=== PATIENT | female | born 1940 | race Caucasian/White ===

== ENCOUNTER 2020-09-06 08:27 | Day surgery (SDC) | payer MEDICARE, OTHER ==
[~2020-09-06 08:27] MED LIST: Brimonidine 0.2% Ophth Soln 5 ML Bottle EYERT SCH; Cefuroxime 10 MG/ML SYRINGE EYERT SCH; Lidocaine 1% PF 2 ML SDV INJECT SCH; Ofloxacin 0.3% Ophth Soln 5 ML Bottle EYERT SCH; Phenylephrine 2.5% Ophth Soln 2 ML Bot EYERT SCH; Pilocarpine 4% Ophth Soln 15 ML Bot EYERT SCH; Polymyxin B/Trimethoprim 10 ML Bottle EYERT SCH; Tetracaine HCl/PF 0.5% 4 ML Bottle EYEBOTH SCH; Tobramycin 0.3% Ophth Drops 5 ML Bottle EYERT SCH; Tropicamide 1% Ophth Soln 15 ML Bottle EYERT SCH
[2020-09-06] MEDS: Tobramycin 0.3% Ophth Drops 5 ML Bottle EYERT SCH ×3 (09:09→10:38)
[2020-09-06] MEDS: Brimonidine 0.2% Ophth Soln 5 ML Bottle EYERT SCH ×3 (09:15→10:38)
--- NOTE | 2020-09-06 09:17 | PCM.PREANE ---
Preanesthetic Assessment - Procedure Proposed Procedure: Cataract Extraction Right Eye with IOL - Anesthesia/Transfusion/Family Hx Anesthesia History: Prior Anesthesia Without Reaction Family History of Anesthesia Reaction: No - Review of Systems General: No Symptoms Pulmonary: No Symptoms (Asthma, well controlled, triggered by grain dust. ) Cardiovascular: Other ([place] 2016, Stent placement x 2, follows with cardiology, no problems since then. ) Gastrointestinal: No Symptoms Neurological: No Symptoms Other: Reports: Depression - Physical Assessment NPO Status Date: 09/05/20 NPO Status Time: 19:30 Vital Signs: Last Vital Signs Temp 36.6 C 09/06/20 08:30 Pulse 59 L 09/06/20 08:30 Resp 16 09/06/20 08:30 BP 144/64 H 09/06/20 08:30 Pulse Ox 99 09/06/20 08:30 Height: 1.57 m Weight: 51.71 kg ASA Class: 3 Mental Status: Alert & Oriented x3 Airway Class: Mallampati = 1 Thyro-Mental Finger Breadths: 2 Mouth Opening Finger Breadths: 3 ROM/Head Extension: Full Lungs: Clear to Auscultation, Normal Respiratory Effort - Allergies Allergies/Adverse Reactions: Allergies Allergy/AdvReac Type Severity Reaction Status Date / Time irbesartan [From Avapro] Allergy Other Verified 09/05/20 16:15 levofloxacin Allergy Rash Verified 09/05/20 16:15 lisinopril Allergy Other Verified 09/05/20 16:15 Sulfa (Sulfonamide Allergy Hives Verified 09/05/20 16:15 Antibiotics) fosinopril sodium AdvReac Headache Verified 09/05/20 16:15 [From Monopril] - Anesthesia Plan Beta Cornelio: Metoprolol Med Last Dose Date: 09/06/20 Med Last Dose Time: 07:00 - Acknowledgements Anesthesia Type Planned: MAC Pt an Appropriate Candidate for the Planned Anesthesia: Yes Alternatives and Risks of Anesthesia Discussed w Pt/Guardian: Yes Pt/Guardian Understands and Agrees with Anesthesia Plan: Yes PreAnesthesia Questionnaire HEENT History: Reports: Impaired Vision Other HEENT History: wears glasses and contacts Cardiovascular History: Reports: Bypass, Hypertension Respiratory History: Reports: Asthma Genitourinary History: Reports: Other (See Below) Other Genitourinary History: "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." 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 OB/BYN History: Other Musculoskeletal History: wrist FX x2 Dermatologic History: Reports: Other (See Below) Other Dermatologic History: stasis papillomatosis - Infectious Disease History Infectious Disease History: Reports: Measles - Past Surgical History Cardiovascular Surgical History: Reports: Other (See Below) - HOME MEDS Home Medications: Home Meds Metoprolol Tartrate 50 mg PO BID 05/11/15 [History] amLODIPine [Norvasc] 5 mg PO BID 05/11/15 [History] hydrALAZINE [Apresoline] 10 mg PO BID 05/11/15 [History] Aspirin [Halfprin] 81 mg PO DAILY 04/02/16 [History] Clopidogrel [Plavix] 75 mg PO DAILY 04/02/16 [History] Furosemide [Lasix] 10 mg PO DAILY 04/02/16 [History] Isosorbide Dinitrate 10 mg PO DAILY 04/02/16 [History] Allopurinol [Zyloprim] 100 mg PO DAILY 08/08/20 [History] Clopidogrel Bisulfate [Plavix] 75 mg PO DAILY 08/08/20 [History] Ferrous Sulfate [Iron] 325 mg PO BID 08/08/20 [History] Rosuvastatin [Crestor] 10 mg PO DAILY 08/08/20 [History] Vit A/Vit C/Vit E/Zinc/Copper [Preservision Areds Softgel] 1 tab PO DAILY 08/08/20 [History] calcitrioL [Rocaltrol] 0.25 mcg PO DAILY 08/08/20 [History] - CURRENT (IN HOUSE) MEDS Current Meds: Current Medications Brimonidine Tartrate (Alphagan 0.2% Ophth Soln) 0 ml EYERT ASDIRECTED DANTE Stop: 09/06/20 18:00 Cefuroxime Sodium (Zinacef) 0 mg EYERT ASDIRECTED DANTE Stop: 09/06/20 18:00 Lidocaine HCl (Xylocaine-Mpf 1%) 0 ml INJECT ASDIRECTED DANTE Stop: 09/06/20 18:00 Phenylephrine HCl (Duarte-Synephrine 2.5% Ophth Soln) 0 ml EYERT ASDIRECTED DANTE Stop: 09/06/20 18:00 Pilocarpine HCl (Pilocar 4% Ophth Soln) 0 ml EYERT ASDIRECTED DANTE Stop: 09/06/20 18:00 Tetracaine HCl (Tetracaine 0.5% Steri-Unit Belle) 0 ml EYEBOTH ASDIRECTED DANTE Stop: 09/06/20 18:00 Tobramycin (Tobramycin 0.3% Ophth Soln) 0 ml EYERT ASDIRECTED DANTE Stop: 09/06/20 18:00 Last Admin: 09/06/20 09:09 Dose: 1 drop Documented by: Tropicamide (Mydriacyl 1% Ophth Soln) 0 ml EYERT ASDIRECTED DANTE Stop: 09/06/20 18:00 Discontinued Medications Brimonidine Tartrate (Alphagan 0.2% Ophth Soln) 0 ml EYERT ASDIRECTED DANTE Stop: 08/09/20 18:00 Lidocaine HCl (Xylocaine-Mpf 1%) 0 ml INJECT ASDIRECTED DANTE Stop: 08/09/20 18:00 Ofloxacin (Ocuflox 0.3% Oph Soln) 1 ml EYERT ASDIRECTED DANTE Phenylephrine HCl (Duarte-Synephrine 2.5% Oph Soln) 0 ml EYERT ASDIRECTED DANTE Stop: 08/09/20 18:00 Pilocarpine HCl (Pilocar 4% Ophth Soln) 0 ml EYERT ASDIRECTED DANTE Stop: 08/09/20 18:00 Polymyxin/Trimethoprim Sulfate (Polytrim Ophth Soln) 0 ml EYERT ASDIRECTED DANTE Stop: 08/09/20 18:00 Tetracaine HCl (Tetracaine 0.5% Steri-Unit Belle) 0 ml EYEBOTH ASDIRECTED DANTE Stop: 08/09/20 18:00 Tobramycin (Tobramycin 0.3% Ophth Soln) 0 ml EYERT ASDIRECTED DANTE Stop: 08/09/20 18:00 Tropicamide (Mydriacyl 1% Oph Soln) 0 ml EYERT ASDIRECTED DANTE Stop: 08/09/20 18:00
[2020-09-06] MEDS: Phenylephrine 2.5% Ophth Soln 2 ML Bot EYERT SCH ×5 (09:20→10:15)
[2020-09-06] MEDS: Tropicamide 1% Ophth Soln 15 ML Bottle EYERT SCH ×5 (09:25→10:09)
[2020-09-06] MEDS: Tetracaine HCl/PF 0.5% 4 ML Bottle EYEBOTH SCH ×4 (09:52→10:24)
--- NOTE | 2020-09-06 10:38 | PCM48HPAN ---
Post Anesthesia Note - EVALUATION WITHIN 48HRS OF ANESTHETIC Vital Signs in Normal Range: Yes Patient Participated in Evaluation: Yes Respiratory Function Stable: Yes Airway Patent: Yes Cardiovascular Function Stable: Yes Hydration Status Stable: Yes Pain Control Satisfactory: Yes Nausea and Vomiting Control Satisfactory: Yes Mental Status Recovered: Yes Vital Signs: Last Vital Signs Temp 36.6 C 09/06/20 08:30 Pulse 59 L 09/06/20 08:30 Resp 16 09/06/20 08:30 BP 144/64 H 09/06/20 08:30 Pulse Ox 99 09/06/20 08:30
[2020-09-06 10:53] VITALS: BP 149/58; PULSE 58
== END 2020-09-06 10:48 | disposition home or self-care (01) ==
LOC: JD.SDS 08:27
PROVIDERS: ATTEND Ophthalmology
DX: H25.813 Combined forms of age-related cataract, bilateral (principal); H35.3131 Nonexudative age-related macular degeneration, bilateral, early dry stage; H35.363 Drusen (degenerative) of macula, bilateral; H53.032 Strabismic amblyopia, left eye; H43.22 Crystalline deposits in vitreous body, left eye; J45.909 Unspecified asthma, uncomplicated; E78.00 Pure hypercholesterolemia, unspecified; I10 Essential (primary) hypertension; Z87.891 Personal history of nicotine dependence; Z88.8 Allergy status to other drugs, medicaments and biological substances; Z88.2 Allergy status to sulfonamides
CPT/HCPCS: 66984; A9270; C1780; J0697; J2001

== ENCOUNTER 2020-09-27 07:16 | Day surgery (SDC) | payer MEDICARE, OTHER ==
[~2020-09-27 07:16] MED LIST changes: -Brimonidine 0.2% Ophth Soln 5 ML Bottle EYERT SCH; +Cefuroxime 10 MG/ML SYRINGE EYELF SCH; -Cefuroxime 10 MG/ML SYRINGE EYERT SCH; -Ofloxacin 0.3% Ophth Soln 5 ML Bottle EYERT SCH; -Phenylephrine 2.5% Ophth Soln 2 ML Bot EYERT SCH; +Pilocarpine 4% Ophth Soln 15 ML Bot EYELF SCH; -Pilocarpine 4% Ophth Soln 15 ML Bot EYERT SCH; -Polymyxin B/Trimethoprim 10 ML Bottle EYERT SCH; -Tetracaine HCl/PF 0.5% 4 ML Bottle EYEBOTH SCH; -Tobramycin 0.3% Ophth Drops 5 ML Bottle EYERT SCH; -Tropicamide 1% Ophth Soln 15 ML Bottle EYERT SCH
[2020-09-27] MEDS: Tobramycin 0.3% Ophth Drops 5 ML Bottle EYELF SCH ×3 (07:28→09:01)
--- NOTE | 2020-09-27 07:32 | PCM.PREANE ---
Preanesthetic Assessment - Anesthesia/Transfusion/Family Hx Anesthesia History: Prior Anesthesia Without Reaction Family History of Anesthesia Reaction: No Transfusion History: No Prior Transfusion(s) - Review of Systems General: No Symptoms Pulmonary: No Symptoms Gastrointestinal: No Symptoms Neurological: No Symptoms Other: Reports: None - Physical Assessment NPO Status Date: 09/26/20 NPO Status Time: 20:00 ASA Class: 2 Mental Status: Alert & Oriented x3 Airway Class: Mallampati = 2 Dentition: Reports: Normal Dentition Thyro-Mental Finger Breadths: 3 Mouth Opening Finger Breadths: 3 ROM/Head Extension: Full Lungs: Clear to Auscultation, Normal Respiratory Effort Cardiovascular: Regular Rate, Regular Rhythm - Allergies Allergies/Adverse Reactions: Allergies Allergy/AdvReac Type Severity Reaction Status Date / Time irbesartan [From Avapro] Allergy Other Verified 09/26/20 13:45 levofloxacin Allergy Rash Verified 09/26/20 13:45 lisinopril Allergy Other Verified 09/26/20 13:45 Sulfa (Sulfonamide Allergy Hives Verified 09/26/20 13:45 Antibiotics) fosinopril sodium AdvReac Headache Verified 09/26/20 13:45 [From Monopril] - Acknowledgements Anesthesia Type Planned: MAC Pt an Appropriate Candidate for the Planned Anesthesia: Yes Alternatives and Risks of Anesthesia Discussed w Pt/Guardian: Yes Pt/Guardian Understands and Agrees with Anesthesia Plan: Yes PreAnesthesia Questionnaire HEENT History: Reports: Impaired Vision Other HEENT History: wears glasses and contacts Cardiovascular History: Reports: CAD, Hypertension, [place], SOB on Exertion, Other ( See Below) ([place] December 2015 stents x2) Respiratory History: Reports: Asthma Genitourinary History: Reports: Other (See Below) Other Genitourinary History: "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." 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 OB/BYN History: Other Musculoskeletal History: wrist FX x2 Dermatologic History: Reports: Other (See Below) Other Dermatologic History: stasis papillomatosis - Infectious Disease History Infectious Disease History: Reports: Measles - Past Surgical History HEENT Surgical History: Reports: Cataract Surgery Cardiovascular Surgical History: Reports: Carotid Endarterectomy, Coronary Artery Stent, Vascular Surgery, Other (See Below) Musculoskeletal Surgical History: Reports: Other (See Below) ((L) wrist) - SUBSTANCE USE Tobacco Use Status *Q: Former Tobacco User - HOME MEDS Home Medications: Home Meds Metoprolol Tartrate 50 mg PO BID 05/11/15 [History] amLODIPine [Norvasc] 5 mg PO BID 05/11/15 [History] hydrALAZINE [Apresoline] 10 mg PO BID 05/11/15 [History] Aspirin [Halfprin] 81 mg PO DAILY 04/02/16 [History] Clopidogrel [Plavix] 75 mg PO DAILY 04/02/16 [History] Furosemide [Lasix] 10 mg PO DAILY 04/02/16 [History] Isosorbide Dinitrate 10 mg PO DAILY 04/02/16 [History] Allopurinol [Zyloprim] 100 mg PO DAILY 08/08/20 [History] Clopidogrel Bisulfate [Plavix] 75 mg PO DAILY 08/08/20 [History] Ferrous Sulfate [Iron] 325 mg PO BID 08/08/20 [History] Rosuvastatin [Crestor] 10 mg PO DAILY 08/08/20 [History] Vit A/Vit C/Vit E/Zinc/Copper [Preservision Areds Softgel] 1 tab PO DAILY 08/08/20 [History] calcitrioL [Rocaltrol] 0.25 mcg PO DAILY 08/08/20 [History] - CURRENT (IN HOUSE) MEDS Current Meds: Current Medications Brimonidine Tartrate (Alphagan 0.2% Ophth Soln) 0 ml EYELF ASDIRECTED DANTE Stop: 09/27/20 18:00 Cefuroxime Sodium (Zinacef) 0 mg EYELF ASDIRECTED DANTE Stop: 09/27/20 18:00 Lidocaine HCl (Xylocaine-Mpf 1%) 0 ml INJECT ASDIRECTED DANTE Stop: 09/27/20 18:00 Phenylephrine HCl (Duarte-Synephrine 2.5% Ophth Soln) 0 ml EYELF ASDIRECTED DANTE Stop: 09/27/20 18:00 Pilocarpine HCl (Pilocar 4% Ophth Soln) 0 ml EYELF ASDIRECTED DANTE Stop: 09/27/20 18:00 Tetracaine HCl (Tetracaine 0.5% Steri-Unit Belle) 0 ml EYEBOTH ASDIRECTED DANTE Stop: 09/27/20 18:00 Tobramycin (Tobramycin 0.3% Ophth Soln) 0 ml EYELF ASDIRECTED DANTE Stop: 09/27/20 18:00 Tropicamide (Mydriacyl 1% Ophth Soln) 0 ml EYELF ASDIRECTED DANTE Stop: 09/27/20 18:00
[2020-09-27] MEDS: Brimonidine 0.2% Ophth Soln 5 ML Bottle EYELF SCH ×3 (07:33→09:01)
[2020-09-27] MEDS: Phenylephrine 2.5% Ophth Soln 2 ML Bot EYELF SCH ×5 (07:38→08:44)
[2020-09-27] MEDS: Tropicamide 1% Ophth Soln 15 ML Bottle EYELF SCH ×4 (07:42→08:15)
[2020-09-27] MEDS: Tetracaine HCl/PF 0.5% 4 ML Bottle EYEBOTH SCH ×4 (08:22→08:53)
--- NOTE | 2020-09-27 09:03 | PCM48HPAN ---
Post Anesthesia Note - EVALUATION WITHIN 48HRS OF ANESTHETIC Vital Signs in Normal Range: Yes Patient Participated in Evaluation: Yes Respiratory Function Stable: Yes Airway Patent: Yes Cardiovascular Function Stable: Yes Hydration Status Stable: Yes Pain Control Satisfactory: Yes Nausea and Vomiting Control Satisfactory: Yes Mental Status Recovered: Yes Vital Signs: Last Vital Signs Temp 36.8 C 09/27/20 07:36 Pulse 56 L 09/27/20 07:36 Resp 16 09/27/20 07:36 BP 138/56 L 09/27/20 07:36 Pulse Ox 97 09/27/20 07:36
[2020-09-27 09:15] VITALS: BP 143/71; PULSE 58
== END 2020-09-27 09:11 | disposition home or self-care (01) ==
LOC: JD.SDS 07:16
PROVIDERS: ATTEND Ophthalmology
DX: H25.812 Combined forms of age-related cataract, left eye (principal); H52.31 Anisometropia; H35.3131 Nonexudative age-related macular degeneration, bilateral, early dry stage; H53.032 Strabismic amblyopia, left eye; H43.22 Crystalline deposits in vitreous body, left eye; M05.89 Other rheumatoid arthritis with rheumatoid factor of multiple sites; E78.00 Pure hypercholesterolemia, unspecified; I10 Essential (primary) hypertension; Z98.890 Other specified postprocedural states; Z87.891 Personal history of nicotine dependence; Z79.899 Other long term (current) drug therapy; Z79.82 Long term (current) use of aspirin; Z88.8 Allergy status to other drugs, medicaments and biological substances; Z96.1 Presence of intraocular lens; J45.909 Unspecified asthma, uncomplicated
CPT/HCPCS: 66984; A9270; J0697; J2001; V2632

== ENCOUNTER 2021-02-25 07:35 | Emergency (ER) | payer MEDICARE, OTHER ==
[2021-02-25 07:50] VITALS: BP 155/63; PULSE 90
--- NOTE | 2021-02-25 08:05 | EDM.PDOC ---
ED HPI GENERAL MEDICAL PROBLEM - General Chief Complaint: Skin Complaint Stated Complaint: FACIAL SWELLING/DENTAL OR SINUS COMPLAINT Time Seen by Provider: 02/25/21 07:53 Source of Information: Reports: Patient, RN Notes Reviewed - History of Present Illness INITIAL COMMENTS - FREE TEXT/NARRATIVE: 80 yr old female with selling discomfort L upper mouth. She only has 1 remaining upper incissor. That has become pressure sensitive over the last 2 days. There is swelling and achiness base of tooth worse today. No fever or chills. Upper Lip Pain Score (Numeric/FACES): 3 - Related Data Allergies Allergy/AdvReac Type Severity Reaction Status Date / Time irbesartan [From Avapro] Allergy Other Verified 02/25/21 07:50 levofloxacin Allergy Rash Verified 02/25/21 07:50 lisinopril Allergy Other Verified 02/25/21 07:50 Sulfa (Sulfonamide Allergy Hives Verified 02/25/21 07:50 Antibiotics) fosinopril sodium AdvReac Headache Verified 02/25/21 07:50 [From Monopril] Home Meds: Home Meds Metoprolol Tartrate 50 mg PO BID 05/11/15 [History] amLODIPine [Norvasc] 5 mg PO BID 05/11/15 [History] hydrALAZINE [Apresoline] 10 mg PO BID 05/11/15 [History] Aspirin [Halfprin] 81 mg PO DAILY 04/02/16 [History] Clopidogrel [Plavix] 75 mg PO DAILY 04/02/16 [History] Furosemide [Lasix] 10 mg PO DAILY 04/02/16 [History] Isosorbide Dinitrate 10 mg PO DAILY 04/02/16 [History] Ferrous Sulfate [Iron] 325 mg PO BID 08/08/20 [History] Rosuvastatin [Crestor] 10 mg PO DAILY 08/08/20 [History] Vit A/Vit C/Vit E/Zinc/Copper [Preservision Areds Softgel] 1 tab PO DAILY 08/08/20 [History] allopurinoL [Zyloprim] 100 mg PO DAILY 08/08/20 [History] calcitrioL [Rocaltrol] 0.25 mcg PO DAILY 08/08/20 [History] Amoxicillin 500 mg PO Q8HR #20 capsule 02/25/21 [Rx] Past Medical History HEENT History: Reports: Impaired Vision Other HEENT History: wears glasses and contacts Cardiovascular History: Reports: CAD, Hypertension, [place], SOB on Exertion, Other (See Below) Respiratory History: Reports: Asthma Genitourinary History: Reports: Other (See Below) Other Genitourinary History: "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." - unsure if one it working or not 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 OF 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: 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 Musculoskeletal History: wrist FX x2 Dermatologic History: Reports: Other (See Below) Other Dermatologic History: stasis papillomatosis - Infectious Disease History Infectious Disease History: Reports: Measles - Past Surgical History HEENT Surgical History: Reports: Cataract Surgery Cardiovascular Surgical History: Reports: Carotid Endarterectomy, Coronary Artery Stent, Vascular Surgery, Other (See Below) Other Cardiovascular Surgeries/Procedures: Carotid artery surgery Musculoskeletal Surgical History: Reports: Other (See Below) Other Musculoskeletal Surgeries/Procedures:: left wrist surgery with repair Social & Family History - Tobacco Use Tobacco Use Status *Q: Never Tobacco User - Caffeine Use Caffeine Use: Reports: Coffee - Recreational Drug Use Recreational Drug Use: No ED ROS GENERAL - Review of Systems Review Of Systems: See Below Constitutional: Denies: Fever, Chills HEENT: Reports: Dental Pain Respiratory: Reports: No Symptoms Cardiovascular: Reports: No Symptoms GI/Abdominal: Reports: No Symptoms Musculoskeletal: Reports: No Symptoms Skin: Denies: Rash, Erythema Neurological: Reports: No Symptoms ED EXAM, SKIN/RASH Exam: See Below General Appearance: Alert, No Apparent Distress Ears: Normal External Exam Nose: Normal Inspection Throat/Mouth: Normal Oropharynx, Other (mild swelling L upper gum base of L incissor, no active drainage) Head: Facial Swelling (no visible facial swelling) Respiratory/Chest: No Respiratory Distress Extremities: Normal Inspection Neurological: Alert, Oriented, No Motor/Sensory Deficits Skin: Warm, Dry, Normal Color Course - Vital Signs Last Recorded V/S: Last Vital Signs Temp 96.9 F 02/25/21 07:44 Pulse 90 02/25/21 07:44 Resp 18 02/25/21 07:44 BP 155/63 H 02/25/21 07:44 Pulse Ox 100 02/25/21 07:44 Departure - Departure Time of Disposition: 08:02 Disposition: Home, Self-Care 01 Condition: Fair Clinical Impression: Pain, dental - Discharge Information Prescriptions: Amoxicillin 500 mg PO Q8HR #20 capsule Referrals: PCP,None [Primary Care Provider] - Forms: ED Department Discharge Additional Instructions: Amoxicillin 500 mg 3 times daily for 1 week or until gone. Prescription has been sent to [facility] the [facility]. See your dentist in the next week or so for further eval and treatment as needed. Sepsis Event Note (ED) - Evaluation Sepsis Screening Result: No Definite Risk - Focused Exam Vital Signs: Vital Signs Temp Pulse Resp BP Pulse Ox 02/25/21 07:44 96.9 F 90 18 155/63 H 100
== END 2021-02-25 08:12 | disposition home or self-care (01) ==
LOC: JD.ED 07:35
DX: K08.89 Other specified disorders of teeth and supporting structures (principal); I25.10 Atherosclerotic heart disease of native coronary artery without angina pectoris; I10 Essential (primary) hypertension; I25.2 Old myocardial infarction; J45.909 Unspecified asthma, uncomplicated; Z79.82 Long term (current) use of aspirin; Z79.02 Long term (current) use of antithrombotics/antiplatelets; Z79.899 Other long term (current) drug therapy; Z88.8 Allergy status to other drugs, medicaments and biological substances; Z88.1 Allergy status to other antibiotic agents; Z88.2 Allergy status to sulfonamides
CPT/HCPCS: 99282; 99283

== ENCOUNTER 2021-06-04 14:40 | Inpatient (IN) | payer MEDICARE, OTHER ==
[2021-06-04] MEDS ORDERED: Sodium Chloride 0.9% 10 ML Syringe FLUSH PRN (14:48)
[2021-06-04] MEDS ORDERED: Sodium Chloride 0.9% 1,000 ML IV STA ×2 (15:03→17:53)
[2021-06-04] MEDS ORDERED: Acetaminophen 325 MG Tab PO ONE (15:04)
--- NOTE | 2021-06-04 16:53 | EDM.PDOC ---
ED HPI GENERAL MEDICAL PROBLEM - General Chief Complaint: Syncope Stated Complaint: KAMILLA AMB Time Seen by Provider: 06/04/21 14:43 Source of Information: Reports: Patient, RN Notes Reviewed History Limitations: Reports: No Limitations - History of Present Illness INITIAL COMMENTS - FREE TEXT/NARRATIVE: Patient is a 81-year-old female presenting to the emergency department for evaluation after experiencing syncopal episode. Patient reports that she was working outside for most of the morning. Of note, ambient temperature today is 100 degrees. She went inside and was moving a headboard by herself and experience syncope. This was not witnessed. Her neighbor came to check on her and found her. Reports that she has not eaten or drink anything today. She is complaining of pain to her left shoulder and left ribs. Denies any headache or vision changes. She has had no chest pain or shortness of breath. She denies any history of previous syncopal episodes. Denies any history of cardiac arrhythmias. Left Clavicle Pain Score (Numeric/FACES): 7 - Related Data Allergies Allergy/AdvReac Type Severity Reaction Status Date / Time irbesartan [From Avapro] Allergy Other Verified 06/04/21 14:50 levofloxacin Allergy Rash Verified 06/04/21 14:50 lisinopril Allergy Other Verified 06/04/21 14:50 Sulfa (Sulfonamide Allergy Hives Verified 06/04/21 14:50 Antibiotics) fosinopril sodium AdvReac Headache Verified 06/04/21 14:50 [From Monopril] Home Meds: Home Meds Aspirin [Halfprin] 81 mg PO DAILY 04/02/16 [History] Furosemide [Lasix] 20 mg PO ASDIRECTED 04/02/16 [History] Isosorbide Dinitrate 10 mg PO BID 04/02/16 [History] Ferrous Sulfate [Iron] 65 mg PO BID 08/08/20 [History] Rosuvastatin [Crestor] 10 mg PO DAILY 08/08/20 [History] allopurinoL [Zyloprim] 100 mg PO DAILY 08/08/20 [History] calcitrioL [Rocaltrol] 0.25 mcg PO ASDIRECTED 08/08/20 [History] carvediloL [Carvedilol] 3.125 mg PO BID 02/25/21 [History] Entresto 1 tab PO BID 06/04/21 [History] Cholecalciferol (Vitamin D3) [Vitamin D3] 1,000 unit PO BID 06/04/21 [History] Ubidecarenone [Co Q-10] 10 mg PO DAILY 06/04/21 [History] Past Medical History HEENT History: Reports: Impaired Vision Other HEENT History: wears glasses and contacts Cardiovascular History: Reports: CAD, Hypertension, MA, SOB on Exertion, Other (See Below) Respiratory History: Reports: Asthma Genitourinary History: Reports: Other (See Below) Other Genitourinary History: "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." - unsure if one it working or not [employer]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 Musculoskeletal History: wrist FX x2 Dermatologic History: Reports: Other (See Below) Other Dermatologic History: stasis papillomatosis - Infectious Disease History Infectious Disease History: Reports: Measles - Past Surgical History HEENT Surgical History: Reports: Cataract Surgery Cardiovascular Surgical History: Reports: Carotid Endarterectomy, Coronary Artery Stent, Vascular Surgery, Other (See Below) Other Cardiovascular Surgeries/Procedures: Carotid artery surgery Musculoskeletal Surgical History: Reports: Other (See Below) Other Musculoskeletal Surgeries/Procedures:: left wrist surgery with repair Social & Family History - Tobacco Use Tobacco Use Status *Q: Never Tobacco User Second Hand Smoke Exposure: No - Caffeine Use Caffeine Use: Reports: Coffee - Recreational Drug Use Recreational Drug Use: No ED ROS GENERAL - Review of Systems Review Of Systems: See Below Constitutional: Reports: No Symptoms. Denies: Fever, Chills, Weakness HEENT: Reports: No Symptoms Respiratory: Reports: No Symptoms. Denies: Shortness of Breath, Cough Cardiovascular: Reports: Syncope. Denies: Chest Pain, Dyspnea on Exertion, Lightheadedness, Palpitations Endocrine: Reports: No Symptoms GI/Abdominal: Reports: No Symptoms : Reports: No Symptoms Musculoskeletal: Reports: Other (Left shoulder, chest wall, and fourth finger pain) Skin: Reports: No Symptoms Neurological: Reports: No Symptoms Psychiatric: Reports: No Symptoms Hematologic/Lymphatic: Reports: No Symptoms Immunologic: Reports: No Symptoms - Physical Exam Exam: See Below Exam Limited By: No Limitations General Appearance: Alert, WD/WN, No Apparent Distress Eye Exam: Bilateral Eye: PERRL Ears: Normal External Exam, Normal Canal, Hearing Grossly Normal, Normal TMs Head Exam: Normocephalic, Scalp Abrasions (0.25 cm superficial left frontal scalp). No: Scalp Lacerations, Scalp Swelling Neck: Normal Inspection, Supple, Non-Tender, Full Range of Motion Respiratory/Chest: No Respiratory Distress, Lungs Clear, Normal Breath Sounds, No Accessory Muscle Use, Other (left chest wall tenderness) Cardiovascular: Normal Peripheral Pulses, Regular Rate, Rhythm, No Edema, No Gallop, No JVD, No Murmur, No Rub GI/Abdominal: Normal Bowel Sounds, Soft, Non-Tender, No Organomegaly, No Distention, No Abnormal Bruit, No Mass Neuro Exam (Abbreviated): Alert, Oriented, CN II-XII Intact, Normal Cognition, Normal Gait, Normal Reflexes, No Motor/Sensory Deficits Back Exam: Normal Inspection, Full Range of Motion. No: Vertebral Tenderness Extremities: Other (tenderness to palpation and obvious deformity to left clavicle midshaft. superficial skin tear to left lateral elbow. pain and mild swelling to left 4th finger with chronic deformity d/t arthritis.) Psychiatric: Normal Affect #1 Interpretation EKG Date: 06/04/21 Time: 15:23 Rhythm: NSR Rate (Beats/Min): 68 [place]: Normal P-Wave: Present QRS: Normal ST-T: Normal QT: Normal Course - Vital Signs Last Recorded V/S: Last Vital Signs Temp 98.1 F 06/04/21 20:49 Pulse 67 06/04/21 20:49 Resp 16 06/04/21 20:49 BP 96/41 L 06/04/21 20:49 Pulse Ox 92 L 06/04/21 20:49 - Orders/Labs/Meds Orders: Active Orders 24 hr Category Date Time Status EKG Documentation Completion [RC] STAT Care 06/04/21 14:49 Active RT Aerosol Therapy [RC] ASDIRECTED Care 06/04/21 17:07 Active BLOOD CULTURE [MREF] Stat Lab 06/04/21 18:35 Received BLOOD CULTURE [MREF] Stat Lab 06/04/21 18:35 Received Sodium Chloride 0.9% [Normal Saline] 1,000 ml Med 06/04/21 17:53 Active IV NOW Sodium Chloride 0.9% [Saline Flush] Med 06/04/21 14:48 Active 10 ml FLUSH ASDIRECTED PRN Blood Culture x2 Reflex Set [OM.PC] Stat Oth 06/04/21 17:57 Ordered DME for Discharge [COMM] Routine Oth 06/04/21 17:18 Ordered Peripheral IV Insertion Adult [OM.PC] Stat Oth 06/04/21 14:48 Ordered Medication Orders Heparin Sodium (Porcine) (Heparin Sodium 5,000 Units/Ml Vial) 5,000 units SUBCUT Q8H DANTE Sodium Chloride (Normal Saline) 1,000 mls @ 150 mls/hr IV NOW STA Stop: 06/05/21 00:32 Sodium Chloride (Normal Saline) 1,000 mls @ 100 mls/hr IV ASDIRECTED DANTE Last Admin: 06/04/21 19:07 Dose: 100 mls/hr Documented by: PAZ Ondansetron HCl (Ondansetron 4 Mg/2 Ml Sdv) 4 mg IV Q4H PRN PRN Reason: Nausea/Vomiting Sodium Chloride (Sodium Chloride 0.9% 10 Ml Syringe) 10 ml FLUSH ASDIRECTED PRN PRN Reason: Keep Vein Open Last Admin: 06/04/21 16:36 Dose: 10 ml Documented by: PAZ Labs: Laboratory Tests 06/04/21 06/04/21 06/04/21 Range/Units 16:22 16:22 16:22 WBC 16.96 H (3.98-10.04) K/mm3 RBC 2.67 L (3.98-5.22) M/mm3 Hgb 9.0 L D (11.2-15.7) gm/dl Hct 26.8 L (34.1-44.9) % MCV 100.4 H D (79.4-94.8) fl MCH 33.7 H (25.6-32.2) pg MCHC 33.6 (32.2-35.5) g/dl RDW Std Deviation 45.9 (36.4-46.3) fL Plt Count 265 (182-369) K/mm3 MPV 10.4 (9.4-12.3) fl Neut % (Auto) 90.2 H (34.0-71.1) % Lymph % (Auto) 4.7 L (19.3-51.7) % [place] % (Auto) 4.7 (4.7-12.5) % Eos % (Auto) 0.1 L (0.7-5.8) Baso % (Auto) 0.1 (0.1-1.2) % Neut # (Auto) 15.31 H (1.56-6.13) K/mm3 Lymph # (Auto) 0.79 L (1.18-3.74) K/mm3 [place] # (Auto) 0.79 H (0.24-0.36) K/mm3 Eos # (Auto) 0.01 L (0.04-0.36) K/mm3 Baso # (Auto) 0.02 (0.01-0.08) K/mm3 Manual Slide Review Abnormal smear Sodium 135 L (136-145) mEq/L Potassium 6.3 H* (3.5-5.1) mEq/L Chloride 101 (98-107) mEq/L Carbon Dioxide 20 L (21-32) mEq/L Anion Gap 20.3 H (5-15) BUN 70 H (7-18) mg/dL Creatinine 3.0 H (0.55-1.02) mg/dL Est Cr Clr Drug Dosing 12.09 mL/min Estimated GFR (MDRD) 15 (>60) mL/min BUN/Creatinine Ratio 23.3 H (14-18) Glucose 113 H (70-99) mg/dL Calcium 8.0 L (8.5-10.1) mg/dL Magnesium 1.9 (1.8-2.4) mg/dL Total Bilirubin 0.4 (0.2-1.0) mg/dL AST 28 (15-37) U/L ALT 18 (14-59) U/L Alkaline Phosphatase 78 (46-116) U/L Troponin I 0.030 (0.00-0.056) ng/mL C-Reactive Protein 1.9 H* (<1.0) mg/dL Total Protein 6.0 L (6.4-8.2) g/dl Albumin 3.4 (3.4-5.0) g/dl Globulin 2.6 gm/dL Albumin/Globulin Ratio 1.3 (1-2) Urine Color (Yellow) Urine Appearance (Clear) Urine pH (5.0-8.0) Ur Specific [place] (1.005-1.030) Urine Protein (Negative) Urine Glucose (UA) (Negative) Urine Ketones (Negative) Urine Occult Blood (Negative) Urine Nitrite (Negative) Urine Bilirubin (Negative) Urine Urobilinogen (0.2-1.0) Ur Leukocyte Esterase (Negative) Urine RBC (0-5) /hpf Urine WBC (0-5) /hpf Ur Squamous Epith Cells (0-5) /hpf Urine Bacteria (FEW) /hpf Urine Mucus (FEW) /hpf SARS-CoV-2 RNA (FELA) (NEGATIVE) 06/04/21 06/04/21 Range/Units 17:20 18:16 WBC (3.98-10.04) K/mm3 RBC (3.98-5.22) M/mm3 Hgb (11.2-15.7) gm/dl Hct (34.1-44.9) % MCV (79.4-94.8) fl MCH (25.6-32.2) pg MCHC (32.2-35.5) g/dl RDW Std Deviation (36.4-46.3) fL Plt Count (182-369) K/mm3 MPV (9.4-12.3) fl Neut % (Auto) (34.0-71.1) % Lymph % (Auto) (19.3-51.7) % [place] % (Auto) (4.7-12.5) % Eos % (Auto) (0.7-5.8) Baso % (Auto) (0.1-1.2) % Neut # (Auto) (1.56-6.13) K/mm3 Lymph # (Auto) (1.18-3.74) K/mm3 [place] # (Auto) (0.24-0.36) K/mm3 Eos # (Auto) (0.04-0.36) K/mm3 Baso # (Auto) (0.01-0.08) K/mm3 Manual Slide Review Sodium (136-145) mEq/L Potassium (3.5-5.1) mEq/L Chloride (98-107) mEq/L Carbon Dioxide (21-32) mEq/L Anion Gap (5-15) BUN (7-18) mg/dL Creatinine (0.55-1.02) mg/dL Est Cr Clr Drug Dosing mL/min Estimated GFR (MDRD) (>60) mL/min BUN/Creatinine Ratio (14-18) Glucose (70-99) mg/dL Calcium (8.5-10.1) mg/dL Magnesium (1.8-2.4) mg/dL Total Bilirubin (0.2-1.0) mg/dL AST (15-37) U/L ALT (14-59) U/L Alkaline Phosphatase (46-116) U/L Troponin I (0.00-0.056) ng/mL C-Reactive Protein (<1.0) mg/dL Total Protein (6.4-8.2) g/dl Albumin (3.4-5.0) g/dl Globulin gm/dL Albumin/Globulin Ratio (1-2) Urine Color Yellow (Yellow) Urine Appearance Clear (Clear) Urine pH 6.0 (5.0-8.0) Ur Specific [place] 1.015 (1.005-1.030) Urine Protein 1+ H (Negative) Urine Glucose (UA) Trace H (Negative) Urine Ketones Trace H (Negative) Urine Occult Blood Trace-lysed H (Negative) Urine Nitrite Negative (Negative) Urine Bilirubin Negative (Negative) Urine Urobilinogen 0.2 (0.2-1.0) Ur Leukocyte Esterase Negative (Negative) Urine RBC 0-5 (0-5) /hpf Urine WBC 0-5 (0-5) /hpf Ur Squamous Epith Cells 0-5 (0-5) /hpf Urine Bacteria Few (FEW) /hpf Urine Mucus Not seen (FEW) /hpf SARS-CoV-2 RNA (FELA) Negative (NEGATIVE) Meds: Medications Generic Name Dose Route Start Last Admin Trade Name Freq PRN Reason Stop Dose Admin Heparin Sodium (Porcine) 5,000 units 06/05/21 09:00 Heparin Sodium 5,000 Units/Ml Vial SUBCUT Q8H DANTE Sodium Chloride 1,000 mls @ 150 mls/hr 06/04/21 17:53 Normal Saline IV 06/05/21 00:32 NOW STA Sodium Chloride 1,000 mls @ 100 mls/hr 06/04/21 19:00 06/04/21 19:07 Normal Saline IV 100 mls/hr ASDIRECTED DANTE Administration Ondansetron HCl 4 mg 06/04/21 18:44 Ondansetron 4 Mg/2 Ml Sdv IV Q4H PRN Nausea/Vomiting Sodium Chloride 10 ml 06/04/21 14:48 06/04/21 16:36 Sodium Chloride 0.9% 10 Ml Syringe FLUSH 10 ml ASDIRECTED PRN Administration Keep Vein Open Discontinued Medications Generic Name Dose Route Start Last Admin Trade Name Tripq PRN Reason Stop Dose Admin Acetaminophen 975 mg 06/04/21 15:04 06/04/21 16:11 Acetaminophen 325 Mg Tab PO 06/04/21 15:05 975 mg ONETIME ONE Administration Albuterol 2.5 mg 06/04/21 17:07 06/04/21 17:18 Albuterol 0.083% 2.5 Mg/3 Ml Neb Soln NEB 06/04/21 17:08 2.5 mg ONETIME ONE Administration Calcium Gluconate 1 gm 06/04/21 17:08 06/04/21 17:30 Calcium Gluconate 10% 1 Gm/10 Ml Sdv IVPUSH 06/04/21 17:09 1 gm ONETIME ONE Administration Dextrose/Water 50 ml 06/04/21 17:08 06/04/21 17:25 50% Dextrose In Water 50 Ml Syringe IVPUSH 06/04/21 17:09 50 ml ONETIME ONE Administration Furosemide 20 mg 06/04/21 17:57 06/04/21 18:24 Furosemide 20 Mg/2 Ml Vial IVPUSH 06/04/21 17:58 20 mg ONETIME ONE Administration Sodium Chloride 1,000 mls @ 999 mls/hr 06/04/21 15:03 06/04/21 15:50 Normal Saline IV 06/04/21 16:03 999 mls/hr NOW STA Administration Sodium Chloride 500 mls @ 999 mls/hr 06/04/21 17:56 06/04/21 18:24 Normal Saline IV 06/04/21 18:26 999 mls/hr NOW STA Administration Insulin Human Regular 10 unit 06/04/21 17:08 06/04/21 17:35 Insulin Regular, Human 100 Units/Ml 3 Ml Vial SUBCUT 06/04/21 17:09 10 unit ONETIME ONE Administration Sodium Polystyrene Sulfonate 45 gm 06/04/21 17:38 06/04/21 18:20 Sodium Polystyrene Sulfonate 15 Gm/60 Ml Susp 60 Ml Bot PO 06/04/21 17:39 45 gm NOW ONE Administration - Re-Assessments/Exams Free Text/Narrative Re-Assessment/Exam: Patient is a 81-year-old female presenting to the emergency department after e xperiencing syncopal episode at home. She reports that she was working outside throughout the morning and then came inside and was trying to move the headboard by herself when she apparently experienced a syncopal episode. She reports that she had nothing to eat or drink today and it is very warm outside with ambient temperatures being around 100 degrees. She is complaining of pain to her left shoulder, left chest wall, and left fourth finger. On exam, she has significant tenderness to palpation over the left clavicle with obvious deformity. She is also tender throughout her left lateral chest wall. Neurologic exam is unremarkable. I have ordered blood work, head CT, left rib x-ray with chest, left shoulder x-ray, left fourth finger x-ray, blood work, urinalysis, and EKG of the heart. I will start a 1 L bolus of normal saline. 06/04/[address] is normal. Shows no acute intracranial findings. Xrays of the left shoulder, ribs and chest showsignificantly displaced left clavicle fracture as well as a fracture of the left fourth rib. There was a delay on her blood draw, therefore lab results are not yet available. Patient is resting comfortably at this time. 06/04/21 17:21 Hematology significant for WBC elevated 16.96, hemoglobin low at 9.0, sodium slightly low at 135, potassium high at 6.3, CO2 20, anion gap 20.3, BUN 70, creatinine 3.0, CRP 1.9. Nursing staff is currently obtaining a urine sample via quick cath. Patient reports a history of stage III kidney failure and given today's results she is currently experiencing acute on chronic renal failure. GFR which was checked on 05 April was 24. Today is 15. Patient currently has 1 L of IV fluids infusing. I have also ordered albuterol breathing treatment, calcium gluconate 1 g IV, 10 units of subcutaneous insulin with 50 mL of D 50, and Kayexalate. Patient will require admission into the hospital for acute on chronic renal failure, hyperkalemia and dehydration. I have ordered a sling and swath for her left arm. Once urine results are available, I will speak with the hospitalist regarding admission. 06/04/21 1755 Case was discussed with hospitalist, Dr. Neff. He is excepted the patient for admission for hyperkalemia and acute on chronic renal failure. He requested that I add on a lactic acid and blood cultures as well as a BMP to be completed at 1900. He requested additional 500 mill bolus of normal saline and Lasix 20 mg IV. If urinalysis should come back positive for infection, he requested that Rocephin be given. Patient updated on this and is in agreement with plan. Departure - Departure Time of Disposition: 17:55 Disposition: Admitted As Inpatient 68 Condition: Fair Clinical Impression: Hyperkalemia, Dehydration Acute on chronic renal failure Qualifiers: Acute renal failure type: unspecified Chronic kidney disease stage: stage 4 (severe) Qualified Code(s): N17.9 - Acute kidney failure, unspecified - Discharge Information Sepsis Event Note (ED) - Evaluation Sepsis Screening Result: No Definite Risk - Focused Exam Vital Signs: Vital Signs Temp Pulse Resp BP Pulse Ox Pulse Ox 06/04/21 18:00 89 16 129/45 L 97 06/04/21 17:20 99 06/04/21 16:13 72 16 138/50 L 100 06/04/21 14:46 97 F 69 16 130/57 L 94 L - My Orders Last 24 Hours: My Active Orders 06/04/21 14:48 Sodium Chloride 0.9% [Saline Flush] 10 ml FLUSH ASDIRECTED PRN Peripheral IV Insertion Adult [OM.PC] Stat 06/04/21 14:49 EKG Documentation Completion [RC] STAT 06/04/21 17:07 RT Aerosol Therapy [RC] ASDIRECTED 06/04/21 17:18 DME for Discharge [COMM] Routine 06/04/21 17:53 Sodium Chloride 0.9% [Normal Saline] 1,000 ml IV NOW 06/04/21 17:57 Blood Culture x2 Reflex Set [OM.PC] Stat 06/04/21 18:35 BLOOD CULTURE [MREF] Stat BLOOD CULTURE [MREF] Stat - Assessment/Plan Last 24 Hours: My Active Orders 06/04/21 14:48 Sodium Chloride 0.9% [Saline Flush] 10 ml FLUSH ASDIRECTED PRN Peripheral IV Insertion Adult [OM.PC] Stat 06/04/21 14:49 EKG Documentation Completion [RC] STAT 06/04/21 17:07 RT Aerosol Therapy [RC] ASDIRECTED 06/04/21 17:18 DME for Discharge [COMM] Routine 06/04/21 17:53 Sodium Chloride 0.9% [Normal Saline] 1,000 ml IV NOW 06/04/21 17:57 Blood Culture x2 Reflex Set [OM.PC] Stat 06/04/21 18:35 BLOOD CULTURE [MREF] Stat BLOOD CULTURE [MREF] Stat
[2021-06-04] MEDS ORDERED: Albuterol 0.083% 2.5 MG/3 ML Neb Soln NEB ONE (17:07)
[2021-06-04] MEDS ORDERED: Calcium Gluconate 10% 1 GM/10 ML SDV IVPUSH ONE (17:08)
[2021-06-04] MEDS ORDERED: Insulin Regular, Human 100 Units/ML 3 ML Vial SUBCUT ONE (17:08)
[2021-06-04] MEDS ORDERED: 50% Dextrose in Water 50 ML Syringe IVPUSH ONE (17:08)
[2021-06-04] MEDS ORDERED: Sodium Polystyrene Sulfonate 15 GM/60 ML Susp 60 ML Bot PO ONE (17:38)
[2021-06-04] MEDS ORDERED: Sodium Chloride 0.9% 500 ML IV STA (17:56)
[2021-06-04] MEDS ORDERED: Furosemide 20 MG/2 ML VIAL IVPUSH ONE (17:57)
[2021-06-04] MEDS ORDERED: Ondansetron 4 MG/2 ML SDV IV PRN (18:44)
--- NOTE | 2021-06-04 18:50 | CR ---
Chest and right ribs: Frontal view of the chest was obtained. Two views of the right ribs were also obtained. Comparison: No prior right rib exam is available, prior chest x-ray 01/01/16 is available. Small nodule is noted within the right upper lung and within the left lung base. These are most likely due to granulomas. No acute parenchymal change is seen. Lungs are hyperinflated compatible with probable emphysematous change. No pneumothorax is seen. Heart is mildly enlarged. Bony structures are osteopenic. Mildly displaced rib fracture is noted within the posterior left first rib as well as posterior left second rib. Fracture is also noted within the lateral left fifth rib. No other definite rib fracture is appreciated. Fracture is also noted within the mid to distal aspect of the left clavicle which is slightly angulated. Mild degenerative change is scattered within the spine. Impression: 1. Three left-sided rib fractures as described above. 2. Slightly angulated left clavicle fracture. 3. Cardiomegaly and other findings as noted above. Diagnostic code #3 I mildly disagree with preliminary report from [facility], finalized on 06/04/21, 5:13 PM CDT, code 3
--- NOTE | 2021-06-04 18:53 | CR ---
Left clavicle: 2 views of the left clavicle were obtained. Comparison: No prior clavicle study is available. Displaced and foreshortened fracture is noted within the mid to distal shaft of the left clavicle. Slightly displaced fractures are noted within the posterior first and second rib. Degenerative change is noted within the spine with mild scoliosis. Osteopenia is present. Impression: 1. Fractures within the posterior first and second ribs. 2. Displaced and foreshortened fracture within the mid to distal shaft of the clavicle. 3. Osteopenia and degenerative change within the spine. Diagnostic code #3
--- NOTE | 2021-06-04 18:54 | CR ---
Left shoulder: 3 views left shoulder were obtained. Comparison: No prior study. Fractures within the posterior left first and second ribs are seen. Displaced fracture with foreshortening is noted within the left clavicle. Degenerative change and scoliosis is seen within the spine. No additional abnormality is appreciated. Impression: 1. Left clavicle fracture as well as fractures within the left first and second ribs. 2. Osteopenia and other findings as noted above. No other acute abnormality is appreciated. Diagnostic code #3
--- NOTE | 2021-06-04 18:54 | CR ---
Left fourth finger: 4 views centered to the left fourth finger were obtained. Comparison: No prior finger study is available. Diffuse joint space narrowing is seen within the MCP, DIP and PIP joints. Osteophytes are also noted at the DIP and PIP joints. Osteopenia is noted. Mild deformity is noted off the distal aspect of the proximal phalanx of the fourth finger compatible with old injury. No definite acute abnormality is appreciated. Impression: 1. Severe degenerative change as noted above. 2. Bony density off the distal phalanx of the proximal phalanx most likely due to old injury. 3. Nothing acute is seen. Diagnostic code #3
--- NOTE | 2021-06-04 18:59 | CT ---
Head CT Technique: Multiple axial sections through the brain were obtained. Intravenous contrast was not utilized. Comparison: No prior head CT exam is available. Findings: Ventricles along with basal cisterns and sulci over the convexities are mildly prominent. Very minimal diminished density is noted within the periventricular white matter which is compatible with slight small vessel ischemic demyelination change. No other abnormal parenchymal densities are seen. No evidence of intracranial hemorrhage is seen. No midline shift or mass-effect is appreciated. Bone window settings were reviewed. Visualized paranasal sinuses and mastoid sinuses show nothing acute. No acute calvarial abnormality is seen. Slight soft tissue swelling is noted within the lateral left scalp. Impression: 1. Slight soft tissue swelling within the lateral left scalp. 2. Mild senescent change as noted above. 3. Nothing acute is appreciated on noncontrast head CT study. Diagnostic code #2 I agree with preliminary report from [facility], finalized on 06/04/21, 5:16 PM CDT, code 1
[2021-06-04] MEDS: Sodium Chloride 0.9% 1,000 ML IV SCH ×2 (19:07→23:39)
[2021-06-05] MEDS: Acetaminophen 325 MG Tab PO PRN ×2 (05:44→09:53)
[2021-06-05] MEDS: Heparin Sodium 5,000 Units/ML Vial SUBCUT SCH ×2 (11:02→18:43)
--- NOTE | 2021-06-05 11:24 | PCM.HP.2 ---
H&P History of Present Illness - General Date of Service: 06/05/21 Admit Problem/Dx: Admission Diagnosis/Problem Admission Diagnosis/Problem Hyperkalemia Source of Information: Patient, Family History Limitations: Reports: No Limitations - History of Present Illness Initial Comments - Free Text/Narative: Patient is a 81-year-old female with a past medical history as listed below who presented to the [facility] emergency department with a chief complaint of a syncopal episode in the heat yesterday. The patient states that she was in her usual state of health when she suddenly became lightheaded/dizzy and lost consciousness for an unknown amount of time in her garden while working outside. The patient had had minimal p.o. intake for both solids and liquids all day yesterday according to her own account as well as her daughter's account. The patient states that she fell and hit her head on the left side, a small laceration was the result. The patient had also began to experience left shoulder discomfort as well as upper chest discomfort as status decided that she hit. It is hard to mobilize in all planes of movement at the shoulder as well as circumferential movement. She was brought in for evaluation, in which physical examination was notable for tenderness in the left upper chest and decreased range of motion in the left shoulder. Laboratory values were notable for acute kidney injury on chronic disease as well as hyperkalemia requiring urgent treatment. There were no significant EKG changes. No significant telemetry events in the emergency department. The patient was aggressively treated with Lasix, insulin, and Kayexalate. Patient was also hydrated with crystalloid aggressively. Radiographic imaging was notable for a left clavicle fracture as well as fractures of the first, second and fifth ribs on the left. The overnight provider was contacted regarding admission to the floor and was accepted for ongoing treatment. I inherited the patient this morning and have spoken with her and examined her at bedside, along with the patient's primary nurse with her daughter present in the room. At current time, the patient states that she feels okay but has some pain in the left shoulder. No other specific complaints. A 14 point review of systems was reviewed in its entirety with the patient as well as her daughter and only pertinent for the above information. CODE STATUS: Full code. Left Clavicle Pain Score (Numeric/FACES): 4 - Related Data Allergies/Adverse Reactions: Allergies Allergy/AdvReac Type Severity Reaction Status Date / Time irbesartan [From Avapro] Allergy Other Verified 06/04/21 14:50 levofloxacin Allergy Rash Verified 06/04/21 14:50 lisinopril Allergy Other Verified 06/04/21 14:50 Sulfa (Sulfonamide Allergy Hives Verified 06/04/21 14:50 Antibiotics) fosinopril sodium AdvReac Headache Verified 06/04/21 14:50 [From Monopril] Home Medications: Home Meds Aspirin [Halfprin] 81 mg PO DAILY 04/02/16 [History] Furosemide [Lasix] 20 mg PO ASDIRECTED 04/02/16 [History] Isosorbide Dinitrate 10 mg PO BID 04/02/16 [History] Ferrous Sulfate [Iron] 65 mg PO BID 08/08/20 [History] Rosuvastatin [Crestor] 10 mg PO BEDTIME 08/08/20 [History] allopurinoL [Zyloprim] 100 mg PO BEDTIME 08/08/20 [History] calcitrioL [Rocaltrol] 0.25 mcg PO ASDIRECTED 08/08/20 [History] carvediloL [Carvedilol] 3.125 mg PO BID 02/25/21 [History] Entresto 1 tab PO BID 06/04/21 [History] Cholecalciferol (Vitamin D3) [Vitamin D3] 1,000 unit PO BID 06/04/21 [History] Ubidecarenone [Co Q-10] 10 mg PO DAILY 06/04/21 [History] Vit A/Vit C/Vit E/Zinc/Copper [Preservision] 1 tab PO BID 06/04/21 [History] Past Medical History HEENT History: Reports: Impaired Vision Other HEENT History: wears glasses and contacts Cardiovascular History: Reports: CAD, Hypertension, [place] Respiratory History: Reports: Asthma Genitourinary History: Reports: Other (See Below) Other Genitourinary History: one kidney, Stage 4 kidney disease 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 OB/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 History: Musculoskeletal History: Reports: Arthritis, Fracture Other Musculoskeletal History: wrist FX x2, Humerus fx Hematologic History: Reports: Iron Deficiency Dermatologic History: Reports: Other (See Below) 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 - Infectious Disease History Infectious Disease History: Reports: Measles - Past Surgical History HEENT Surgical History: Reports: Cataract Surgery, LASIK Cardiovascular Surgical History: Reports: Carotid Endarterectomy, Carotid Stents, Coronary Artery Stent, Vascular Surgery, Other (See Below) Other Cardiovascular Surgeries/Procedures: Carotid artery surgery Respiratory Surgical History: Reports: None Female Surgical History: Reports: None Musculoskeletal Surgical History: Reports: None, Other (See Below) Other Musculoskeletal Surgeries/Procedures:: left wrist surgery with repair Dermatological Surgical History: Reports: None Social & Family History - Family History Family Medical History: Unobtainable - Tobacco Use Tobacco Use Status *Q: Former Tobacco User Years of Tobacco use: 20 Used Tobacco, but Quit: Yes Month/Year Tobacco Last Used: 1987 Second Hand Smoke Exposure: No - Caffeine Use Caffeine Use: Reports: Coffee - Alcohol Use Days Per Week of Alcohol Use: 1 Number of Drinks Per Day: 1 Total Drinks Per Week: 1 Date of Last Drink: 06/03/21 Time of Last Drink: 18:00 - Recreational Drug Use Recreational Drug Use: No H&P Review of Systems - Review of Systems: Review Of Systems: Comprehensive ROS is negative, except as noted in HPI. Exam - Exam Exam: See Below - Vital Signs Vital Signs: Last Vital Signs Temp 97.9 F 06/05/21 07:41 Pulse 92 06/05/21 07:41 Resp 20 06/05/21 07:41 BP 123/43 L 06/05/21 07:41 Pulse Ox 93 L 06/05/21 07:41 Weight: 114 lb 8 oz - Exam Physical Exam Comments:: General: Awake and alert, in no apparent distress. Nontoxic-appearing. HEENT: Normocephalic, mild laceration to the left upper scalp. Extra ocular muscles intact. Pupils equal and reactive to light. Nares are patent. Oropharynx clear without erythema or exudate. Tongue is midline. Neck: Supple without lymphadenopathy. No goiter. Trachea midline. Heart: Regular rate and rhythm. S1 and S2 heard without murmur or extrasystoles. Lungs: Clear to auscultation bilaterally. No wheezing, rales, rhonchi. Abdomen: Soft, nontender, nondistended. Positive bowel sounds. No CVA tenderness. No suprapubic tenderness. Extremities: Warm and perfused. No clubbing, cyanosis, or edema. Integument: No obvious rash or jaundice. No lymphadenopathy. Neurologic: Cranial nerves II through XII grossly intact. No obvious gross motor or sensory deficits. Skill skeletal: No obvious joint deformities, effusions. Limited range of motion at the left shoulder in all planes as well as circumferential movement. Psychiatric: Normal mood and affect. - Patient Data Lab Results Last 24 hrs: Laboratory Results - last 24 hr 06/04/21 06/04/21 06/04/21 Range/Units 16:22 16:22 16:22 WBC 16.96 H (3.98-10.04) K/mm3 RBC 2.67 L (3.98-5.22) M/mm3 Hgb 9.0 L D (11.2-15.7) gm/dl Hct 26.8 L (34.1-44.9) % MCV 100.4 H D (79.4-94.8) fl MCH 33.7 H (25.6-32.2) pg MCHC 33.6 (32.2-35.5) g/dl RDW Std Deviation 45.9 (36.4-46.3) fL Plt Count 265 (182-369) K/mm3 MPV 10.4 (9.4-12.3) fl Neut % (Auto) 90.2 H (34.0-71.1) % Lymph % (Auto) 4.7 L (19.3-51.7) % [place] % (Auto) 4.7 (4.7-12.5) % Eos % (Auto) 0.1 L (0.7-5.8) Baso % (Auto) 0.1 (0.1-1.2) % Neut # (Auto) 15.31 H (1.56-6.13) K/mm3 Lymph # (Auto) 0.79 L (1.18-3.74) K/mm3 [place] # (Auto) 0.79 H (0.24-0.36) K/mm3 Eos # (Auto) 0.01 L (0.04-0.36) K/mm3 Baso # (Auto) 0.02 (0.01-0.08) K/mm3 Manual Slide Review Abnormal smear Sodium 135 L (136-145) mEq/L Potassium 6.3 H* (3.5-5.1) mEq/L Chloride 101 (98-107) mEq/L Carbon Dioxide 20 L (21-32) mEq/L Anion Gap 20.3 H (5-15) BUN 70 H (7-18) mg/dL Creatinine 3.0 H (0.55-1.02) mg/dL Est Cr Clr Drug Dosing 12.09 mL/min Estimated GFR (MDRD) 15 (>60) mL/min BUN/Creatinine Ratio 23.3 H (14-18) Glucose 113 H (70-99) mg/dL Lactic Acid (0.4-2.0) mmol/L Calcium 8.0 L (8.5-10.1) mg/dL Magnesium 1.9 (1.8-2.4) mg/dL Total Bilirubin 0.4 (0.2-1.0) mg/dL AST 28 (15-37) U/L ALT 18 (14-59) U/L Alkaline Phosphatase 78 (46-116) U/L Troponin I 0.030 (0.00-0.056) ng/mL C-Reactive Protein 1.9 H* (<1.0) mg/dL Total Protein 6.0 L (6.4-8.2) g/dl Albumin 3.4 (3.4-5.0) g/dl Globulin 2.6 gm/dL Albumin/Globulin Ratio 1.3 (1-2) Urine Color (Yellow) Urine Appearance (Clear) Urine pH (5.0-8.0) Ur Specific [place] (1.005-1.030) Urine Protein (Negative) Urine Glucose (UA) (Negative) Urine Ketones (Negative) Urine Occult Blood (Negative) Urine Nitrite (Negative) Urine Bilirubin (Negative) Urine Urobilinogen (0.2-1.0) Ur Leukocyte Esterase (Negative) Urine RBC (0-5) /hpf Urine WBC (0-5) /hpf Ur Squamous Epith Cells (0-5) /hpf Urine Bacteria (FEW) /hpf Urine Mucus (FEW) /hpf SARS-CoV-2 RNA (FELA) (NEGATIVE) 06/04/21 06/04/21 06/04/21 Range/Units 17:20 18:16 18:35 WBC (3.98-10.04) K/mm3 RBC (3.98-5.22) M/mm3 Hgb (11.2-15.7) gm/dl Hct (34.1-44.9) % MCV (79.4-94.8) fl MCH (25.6-32.2) pg MCHC (32.2-35.5) g/dl RDW Std Deviation (36.4-46.3) fL Plt Count (182-369) K/mm3 MPV (9.4-12.3) fl Neut % (Auto) (34.0-71.1) % Lymph % (Auto) (19.3-51.7) % [place] % (Auto) (4.7-12.5) % Eos % (Auto) (0.7-5.8) Baso % (Auto) (0.1-1.2) % Neut # (Auto) (1.56-6.13) K/mm3 Lymph # (Auto) (1.18-3.74) K/mm3 [place] # (Auto) (0.24-0.36) K/mm3 Eos # (Auto) (0.04-0.36) K/mm3 Baso # (Auto) (0.01-0.08) K/mm3 Manual Slide Review Sodium (136-145) mEq/L Potassium (3.5-5.1) mEq/L Chloride (98-107) mEq/L Carbon Dioxide (21-32) mEq/L Anion Gap (5-15) BUN (7-18) mg/dL Creatinine (0.55-1.02) mg/dL Est Cr Clr Drug Dosing mL/min Estimated GFR (MDRD) (>60) mL/min BUN/Creatinine Ratio (14-18) Glucose (70-99) mg/dL Lactic Acid 1.1 (0.4-2.0) mmol/L Calcium (8.5-10.1) mg/dL Magnesium (1.8-2.4) mg/dL Total Bilirubin (0.2-1.0) mg/dL AST (15-37) U/L ALT (14-59) U/L Alkaline Phosphatase (46-116) U/L Troponin I (0.00-0.056) ng/mL C-Reactive Protein (<1.0) mg/dL Total Protein (6.4-8.2) g/dl Albumin (3.4-5.0) g/dl Globulin gm/dL Albumin/Globulin Ratio (1-2) Urine Color Yellow (Yellow) Urine Appearance Clear (Clear) Urine pH 6.0 (5.0-8.0) Ur Specific [place] 1.015 (1.005-1.030) Urine Protein 1+ H (Negative) Urine Glucose (UA) Trace H (Negative) Urine Ketones Trace H (Negative) Urine Occult Blood Trace-lysed H (Negative) Urine Nitrite Negative (Negative) Urine Bilirubin Negative (Negative) Urine Urobilinogen 0.2 (0.2-1.0) Ur Leukocyte Esterase Negative (Negative) Urine RBC 0-5 (0-5) /hpf Urine WBC 0-5 (0-5) /hpf Ur Squamous Epith Cells 0-5 (0-5) /hpf Urine Bacteria Few (FEW) /hpf Urine Mucus Not seen (FEW) /hpf SARS-CoV-2 RNA (FELA) Negative (NEGATIVE) 06/04/21 06/04/21 06/05/21 Range/Units 19:00 22:05 05:45 WBC 9.70 (3.98-10.04) K/mm3 RBC 2.30 L (3.98-5.22) M/mm3 Hgb 7.6 L (11.2-15.7) gm/dl Hct 23.2 L (34.1-44.9) % MCV 100.9 H (79.4-94.8) fl MCH 33.0 H (25.6-32.2) pg MCHC 32.8 (32.2-35.5) g/dl RDW Std Deviation 46.0 (36.4-46.3) fL Plt Count 213 (182-369) K/mm3 MPV 10.2 (9.4-12.3) fl Neut % (Auto) 86.2 H (34.0-71.1) % Lymph % (Auto) 7.8 L (19.3-51.7) % [place] % (Auto) 5.7 (4.7-12.5) % Eos % (Auto) 0.1 L (0.7-5.8) Baso % (Auto) 0.1 (0.1-1.2) % Neut # (Auto) 8.36 H (1.56-6.13) K/mm3 Lymph # (Auto) 0.76 L (1.18-3.74) K/mm3 [place] # (Auto) 0.55 H (0.24-0.36) K/mm3 Eos # (Auto) 0.01 L (0.04-0.36) K/mm3 Baso # (Auto) 0.01 (0.01-0.08) K/mm3 Manual Slide Review Abnormal smear Sodium 136 (136-145) mEq/L Potassium 4.6 D 4.1 (3.5-5.1) mEq/L Chloride 103 (98-107) mEq/L Carbon Dioxide 19 L (21-32) mEq/L Anion Gap 18.6 H (5-15) BUN 67 H (7-18) mg/dL Creatinine 2.8 H (0.55-1.02) mg/dL Est Cr Clr Drug Dosing 12.95 mL/min Estimated GFR (MDRD) 16 (>60) mL/min BUN/Creatinine Ratio 23.9 H (14-18) Glucose 182 H (70-99) mg/dL Lactic Acid (0.4-2.0) mmol/L Calcium 8.0 L (8.5-10.1) mg/dL Magnesium (1.8-2.4) mg/dL Total Bilirubin (0.2-1.0) mg/dL AST (15-37) U/L ALT (14-59) U/L Alkaline Phosphatase (46-116) U/L Troponin I (0.00-0.056) ng/mL C-Reactive Protein (<1.0) mg/dL Total Protein (6.4-8.2) g/dl Albumin (3.4-5.0) g/dl Globulin gm/dL Albumin/Globulin Ratio (1-2) Urine Color (Yellow) Urine Appearance (Clear) Urine pH (5.0-8.0) Ur Specific [place] (1.005-1.030) Urine Protein (Negative) Urine Glucose (UA) (Negative) Urine Ketones (Negative) Urine Occult Blood (Negative) Urine Nitrite (Negative) Urine Bilirubin (Negative) Urine Urobilinogen (0.2-1.0) Ur Leukocyte Esterase (Negative) Urine RBC (0-5) /hpf Urine WBC (0-5) /hpf Ur Squamous Epith Cells (0-5) /hpf Urine Bacteria (FEW) /hpf Urine Mucus (FEW) /hpf SARS-CoV-2 RNA (FELA) (NEGATIVE) 06/05/21 Range/Units 05:45 WBC (3.98-10.04) K/mm3 RBC (3.98-5.22) M/mm3 Hgb (11.2-15.7) gm/dl Hct (34.1-44.9) % MCV (79.4-94.8) fl MCH (25.6-32.2) pg MCHC (32.2-35.5) g/dl RDW Std Deviation (36.4-46.3) fL Plt Count (182-369) K/mm3 MPV (9.4-12.3) fl Neut % (Auto) (34.0-71.1) % Lymph % (Auto) (19.3-51.7) % [place] % (Auto) (4.7-12.5) % Eos % (Auto) (0.7-5.8) Baso % (Auto) (0.1-1.2) % Neut # (Auto) (1.56-6.13) K/mm3 Lymph # (Auto) (1.18-3.74) K/mm3 [place] # (Auto) (0.24-0.36) K/mm3 Eos # (Auto) (0.04-0.36) K/mm3 Baso # (Auto) (0.01-0.08) K/mm3 Manual Slide Review Sodium 138 (136-145) mEq/L Potassium 3.6 (3.5-5.1) mEq/L Chloride 104 (98-107) mEq/L Carbon Dioxide 17 L (21-32) mEq/L Anion Gap 20.6 H (5-15) BUN 55 H (7-18) mg/dL Creatinine 2.1 H (0.55-1.02) mg/dL Est Cr Clr Drug Dosing 16.39 mL/min Estimated GFR (MDRD) 23 (>60) mL/min BUN/Creatinine Ratio 26.2 H (14-18) Glucose 96 (70-99) mg/dL Lactic Acid (0.4-2.0) mmol/L Calcium 7.7 L (8.5-10.1) mg/dL Magnesium (1.8-2.4) mg/dL Total Bilirubin 0.3 (0.2-1.0) mg/dL AST 35 (15-37) U/L ALT 18 (14-59) U/L Alkaline Phosphatase 67 (46-116) U/L Troponin I (0.00-0.056) ng/mL C-Reactive Protein (<1.0) mg/dL Total Protein 5.5 L (6.4-8.2) g/dl Albumin 2.9 L (3.4-5.0) g/dl Globulin 2.6 gm/dL Albumin/Globulin Ratio 1.1 (1-2) Urine Color (Yellow) Urine Appearance (Clear) Urine pH (5.0-8.0) Ur Specific [place] (1.005-1.030) Urine Protein (Negative) Urine Glucose (UA) (Negative) Urine Ketones (Negative) Urine Occult Blood (Negative) Urine Nitrite (Negative) Urine Bilirubin (Negative) Urine Urobilinogen (0.2-1.0) Ur Leukocyte Esterase (Negative) Urine RBC (0-5) /hpf Urine WBC (0-5) /hpf Ur Squamous Epith Cells (0-5) /hpf Urine Bacteria (FEW) /hpf Urine Mucus (FEW) /hpf SARS-CoV-2 RNA (FELA) (NEGATIVE) Result Diagrams: 06/05/21 05:45 06/05/21 05:45 Sepsis Event Note - Evaluation Sepsis Screening Result: No Definite Risk - Focused Exam Vital Signs: Vital Signs Temp Pulse Resp BP Pulse Ox 06/05/21 07:41 97.9 F 92 20 123/43 L 93 L 06/05/21 04:21 97.5 F 93 18 121/59 L 93 L Problem List Initiated/Reviewed/Updated: Yes Orders Last 24hrs: Active Orders 24 hr Category Date Time Status Admission Status [Patient Status] [ADT] Routine ADT 06/04/21 18:26 Active Cardiac Monitoring [RC] CONTINUOUS Care 06/04/21 18:44 Active Height and Weight [RC] 06 Care 06/04/21 18:44 Active Intake and Output [RC] 04,16 Care 06/04/21 18:44 Active Notify Provider Vital Signs [RC] .PRN Care 06/04/21 18:44 Active Oxygen Therapy [RC] PRN Care 06/04/21 18:44 Active RT Aerosol Therapy [RC] ASDIRECTED Care 06/04/21 17:07 Active Up With Assistance [RC] BID Care 06/04/21 18:44 Active VTE/DVT Education [RC] DAILY Care 06/04/21 18:44 Active Vital Signs [RC] Q4HR Care 06/04/21 18:44 Active Heart Healthy Diet [DIET] Diet 06/04/21 Dinner Active BLOOD CULTURE [MREF] Stat Lab 06/04/21 18:35 Received BLOOD CULTURE [MREF] Stat Lab 06/04/21 18:35 Received Acetaminophen [TylenoL] Med 06/05/21 04:28 Active 650 mg PO Q4H PRN Heparin Sodium Med 06/05/21 09:00 Active 5,000 units SUBCUT Q8H Ondansetron [Zofran] Med 06/04/21 18:44 Active 4 mg IV Q4H PRN Sodium Chloride 0.9% [Saline Flush] Med 06/04/21 14:48 Active 10 ml FLUSH ASDIRECTED PRN traMADol [Ultram] Med 06/05/21 10:33 Active 50 mg PO Q6H PRN Blood Culture x2 Reflex Set [OM.PC] Stat Oth 06/04/21 17:57 Ordered DME for Discharge [COMM] Routine Oth 06/04/21 17:18 Ordered Peripheral IV Insertion Adult [OM.PC] Stat Oth 06/04/21 14:48 Ordered Code Status [Resuscitation Status] Routine Resus Stat 06/04/21 21:32 Ordered Medication Orders Acetaminophen (Acetaminophen 325 Mg Tab) 650 mg PO Q4H PRN PRN Reason: Pain Last Admin: 06/05/21 09:53 Dose: 650 mg Documented by: Admin: 06/05/21 05:44 Dose: 650 mg Documented by: TRACEE Heparin Sodium (Porcine) (Heparin Sodium 5,000 Units/Ml Vial) 5,000 units SUBCUT Q8H [facility] Last Admin: 06/05/21 11:02 Dose: 5,000 units Documented by: FRANKI Ondansetron HCl (Ondansetron 4 Mg/2 Ml Sdv) 4 mg IV Q4H PRN PRN Reason: Nausea/Vomiting Sodium Chloride (Sodium Chloride 0.9% 10 Ml Syringe) 10 ml FLUSH ASDIRECTED PRN PRN Reason: Keep Vein Open Last Admin: 06/04/21 16:36 Dose: 10 ml Documented by: PAZ Tramadol HCl (Tramadol 50 Mg Tab) 50 mg PO Q6H PRN PRN Reason: Pain Assessment/Plan Comment:: Any 11-year-old female with a past medical history as listed above who presents to the [facility] emergency department after a syncopal episode likely due to intravascular volume depletion in extreme heat. 1. BRITANY with acute hyperkalemia. This was apparent at time of ER presentation. Now resolved. Status post intravascular volume repletion and aggressive treatment in the emergency department for hyperkalemia with the above-stated agents. Intermittent check of labs and replace electrolytes as necessary. Avoid nephrotoxins. 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 2. Syncopal episode. Likely precipitated by low intravascular volume while out in 100 degree heat. Status post crystalloid infusion. No evidence to suggest arrhythmia. Encourage good p.o. intake. 3. Multiple rib fractures as well as left clavicular fracture. Pain control as necessary and as needed for rib fractures. Allow for free-flowing atrial chest movement breathing mechanics. We will have the left shoulder immobilized until orthopedics can consult. We are awaiting a callback for recommendations from the orthopedic service. PT OT consultation. All other medical comorbidities are stable and nonactive conditions, we will continue her home medications at regular dose. CODE STATUS: Full code. DVT prophylaxis chemically. - Mortality Measure Prognosis:: Good
[2021-06-05] MEDS: Calcitriol 0.25 MCG Cap PO SCH (12:59)
[2021-06-05] MEDS: traMADol 50 MG Tab PO PRN (14:23)
[2021-06-05] MEDS: Rosuvastatin 10 MG Tab PO SCH (20:01)
[2021-06-05] MEDS: Ferrous Sulfate 324 MG Tab.EC PO SCH (20:02)
[2021-06-05] MEDS: Isosorbide Dinitrate 10 MG Tab PO SCH (20:03)
[2021-06-05] MEDS: Aspirin 81 MG Tab.EC PO SCH (20:03)
[2021-06-05] MEDS: Multivitamins with Minerals/Folic Acid/Lutein/Zeaxanth Tab PO SCH (20:04)
[2021-06-05] MEDS: Carvedilol 3.125 MG Tab PO SCH (20:04)
[2021-06-05] MEDS: Sacubitril/Valsartan 1 EACH Tablet PO SCH (20:05)
[2021-06-05] MEDS: Cholecalciferol (Vitamin D3) 25 MCG Tab PO SCH (20:05)
[2021-06-05] MEDS ORDERED: Allopurinol 100 MG Tab PO SCH (21:00)
[2021-06-06] MEDS: Heparin Sodium 5,000 Units/ML Vial SUBCUT SCH ×3 (00:10→19:01)
[2021-06-06] MEDS: traMADol 50 MG Tab PO PRN ×2 (07:55→18:59)
--- NOTE | 2021-06-06 08:54 | PCM.PN ---
- General Info Date of Service: 06/06/21 Admission Dx/Problem (Free Text): Admission Diagnosis/Problem Admission Diagnosis/Problem Hyperkalemia Subjective Update: No acute events overnight. No new specific nursing concerns. Patient had a drop in hemoglobin below 7.0 g/dL. Patient states that she is tired but is otherwise feeling comfortable. Pain is tolerable. Patient's daughter updated at bedside. 2 units of packed red blood cells already ordered for this morning. 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 Discussing with blood bank releasing O- blood otherwise she would have to wait for specific blood products. - Patient Data Vitals - Most Recent: Last Vital Signs Temp 99.0 F 06/06/21 03:27 Pulse 93 06/06/21 03:27 Resp 16 06/06/21 03:27 BP 130/45 L 06/06/21 03:27 Pulse Ox 91 L 06/06/21 03:27 Weight - Most Recent: 114 lb 11.2 oz I&O - Last 24 Hours: Intake & Output 06/05/21 06/06/21 06/06/21 22:59 06:59 14:59 Intake Total 1360 500 Output Total 400 Balance 960 500 Lab Results Last 24 Hours: Laboratory Results - last 24 hr 06/06/21 06/06/21 06/06/21 Range/Units 05:43 05:43 05:43 WBC 8.16 (3.98-10.04) K/mm3 RBC 1.92 L (3.98-5.22) M/mm3 Hgb 6.4 L* (11.2-15.7) gm/dl Hct 19.7 L (34.1-44.9) % MCV 102.6 H (79.4-94.8) fl MCH 33.3 H (25.6-32.2) pg MCHC 32.5 (32.2-35.5) g/dl RDW Std Deviation 46.5 H (36.4-46.3) fL Plt Count 203 (182-369) K/mm3 MPV 10.1 (9.4-12.3) fl Neut % (Auto) 79.9 H (34.0-71.1) % Lymph % (Auto) 12.1 L (19.3-51.7) % Williams % (Auto) 7.7 (4.7-12.5) % Eos % (Auto) 0.1 L (0.7-5.8) Baso % (Auto) 0.2 (0.1-1.2) % Neut # (Auto) 6.51 H (1.56-6.13) K/mm3 Lymph # (Auto) 0.99 L (1.18-3.74) K/mm3 Williams # (Auto) 0.63 H (0.24-0.36) K/mm3 Eos # (Auto) 0.01 L (0.04-0.36) K/mm3 Baso # (Auto) 0.02 (0.01-0.08) K/mm3 Manual Slide Review Abnormal smear Sodium 139 (136-145) mEq/L Potassium 3.4 L (3.5-5.1) mEq/L Chloride 104 (98-107) mEq/L Carbon Dioxide 21 (21-32) mEq/L Anion Gap 17.4 H (5-15) BUN 53 H (7-18) mg/dL Creatinine 1.9 H (0.55-1.02) mg/dL Est Cr Clr Drug Dosing 18.12 mL/min Estimated GFR (MDRD) 26 (>60) mL/min BUN/Creatinine Ratio 27.9 H (14-18) Glucose 110 H (70-99) mg/dL Calcium 7.6 L (8.5-10.1) mg/dL Iron 20 L (50-170) ug/dL Ferritin 810 H (8-252) ng/ml Vitamin B12 866 (193-986) pg/ml Folate (8.6-58.9) ng/mL 06/06/21 Range/Units 05:43 WBC (3.98-10.04) K/mm3 RBC (3.98-5.22) M/mm3 Hgb (11.2-15.7) gm/dl Hct (34.1-44.9) % MCV (79.4-94.8) fl MCH (25.6-32.2) pg MCHC (32.2-35.5) g/dl RDW Std Deviation (36.4-46.3) fL Plt Count (182-369) K/mm3 MPV (9.4-12.3) fl Neut % (Auto) (34.0-71.1) % Lymph % (Auto) (19.3-51.7) % Williams % (Auto) (4.7-12.5) % Eos % (Auto) (0.7-5.8) Baso % (Auto) (0.1-1.2) % Neut # (Auto) (1.56-6.13) K/mm3 Lymph # (Auto) (1.18-3.74) K/mm3 Williams # (Auto) (0.24-0.36) K/mm3 Eos # (Auto) (0.04-0.36) K/mm3 Baso # (Auto) (0.01-0.08) K/mm3 Manual Slide Review Sodium (136-145) mEq/L Potassium (3.5-5.1) mEq/L Chloride (98-107) mEq/L Carbon Dioxide (21-32) mEq/L Anion Gap (5-15) BUN (7-18) mg/dL Creatinine (0.55-1.02) mg/dL Est Cr Clr Drug Dosing mL/min Estimated GFR (MDRD) (>60) mL/min BUN/Creatinine Ratio (14-18) Glucose (70-99) mg/dL Calcium (8.5-10.1) mg/dL Iron (50-170) ug/dL Ferritin (8-252) ng/ml Vitamin B12 (193-986) pg/ml Folate 71.6 H (8.6-58.9) ng/mL Med Orders - Current: Current Medications Acetaminophen (Acetaminophen 325 Mg Tab) 650 mg PO Q4H PRN PRN Reason: Pain Last Admin: 06/05/21 09:53 Dose: 650 mg Documented by: Aspirin (Aspirin 81 Mg Tab.Ec) 81 mg PO BEDTIME [facility] Last Admin: 06/05/21 20:03 Dose: 81 mg Documented by: Calcitriol (Calcitriol 0.25 Mcg Cap) 0.25 mcg PO MoTh@0600 [facility] Last Admin: 06/05/21 12:59 Dose: 0.25 mcg Documented by: Carvedilol (Carvedilol 3.125 Mg Tab) 3.125 mg PO BID [facility] Last Admin: 06/05/21 20:04 Dose: 3.125 mg Documented by: Cholecalciferol (Cholecalciferol (Vitamin D3) 25 Mcg Tab) 25 mcg PO BID [facility] Last Admin: 06/05/21 20:05 Dose: 25 mcg Documented by: Ferrous Sulfate (Ferrous Sulfate 324 Mg Tab.Ec) 324 mg PO BID [facility] Last Admin: 06/05/21 20:02 Dose: 324 mg Documented by: Heparin Sodium (Porcine) (Heparin Sodium 5,000 Units/Ml Vial) 5,000 units SUBCUT Q8H [facility] Last Admin: 06/06/21 00:10 Dose: 5,000 units Documented by: Isosorbide Dinitrate (Isosorbide Dinitrate 10 Mg Tab) 10 mg PO BID [facility] Last Admin: 06/05/21 20:03 Dose: 10 mg Documented by: Ondansetron HCl (Ondansetron 4 Mg/2 Ml Sdv) 4 mg IV Q4H PRN PRN Reason: Nausea/Vomiting Rosuvastatin Calcium (Rosuvastatin 10 Mg Tab) 10 mg PO BEDTIME [facility] Last Admin: 06/05/21 20:01 Dose: 10 mg Documented by: Sodium Chloride (Sodium Chloride 0.9% 10 Ml Syringe) 10 ml FLUSH ASDIRECTED PRN PRN Reason: Keep Vein Open Last Admin: 06/04/21 16:36 Dose: 10 ml Documented by: Tramadol HCl (Tramadol 50 Mg Tab) 50 mg PO Q6H PRN PRN Reason: Pain Last Admin: 06/06/21 07:55 Dose: 50 mg Documented by: Vit A/Vit C/Vit E/Selen/Cu/Zn/Lutei (Multivitamins With Minerals/Folic Acid/Lutein/Zeaxanth Tab) 1 tab PO BID [facility] Last Admin: 06/05/21 20:04 Dose: 1 tab Documented by: Discontinued Medications Acetaminophen (Acetaminophen 325 Mg Tab) 975 mg PO ONETIME ONE Stop: 06/04/21 15:05 Last Admin: 06/04/21 16:11 Dose: 975 mg Documented by: Albuterol (Albuterol 0.083% 2.5 Mg/3 Ml Neb Soln) 2.5 mg NEB ONETIME ONE Stop: 06/04/21 17:08 Last Admin: 06/04/21 17:18 Dose: 2.5 mg Documented by: Calcium Gluconate (Calcium Gluconate 10% 1 Gm/10 Ml Sdv) 1 gm IVPUSH ONETIME ONE Stop: 06/04/21 17:09 Last Admin: 06/04/21 17:30 Dose: 1 gm Documented by: Dextrose/Water (50% Dextrose In Water 50 Ml Syringe) 50 ml IVPUSH ONETIME ONE Stop: 06/04/21 17:09 Last Admin: 06/04/21 17:25 Dose: 50 ml Documented by: Furosemide (Furosemide 20 Mg/2 Ml Vial) 20 mg IVPUSH ONETIME ONE Stop: 06/04/21 17:58 Last Admin: 06/04/21 18:24 Dose: 20 mg Documented by: Sodium Chloride (Normal Saline) 1,000 mls @ 999 mls/hr IV NOW STA Stop: 06/04/21 16:03 Last Admin: 06/04/21 15:50 Dose: 999 mls/hr Documented by: Sodium Chloride (Normal Saline) 1,000 mls @ 150 mls/hr IV NOW STA Stop: 06/05/21 00:32 Last Admin: 06/05/21 07:40 Dose: Not Given Documented by: Sodium Chloride (Normal Saline) 500 mls @ 999 mls/hr IV NOW STA Stop: 06/04/21 18:26 Last Admin: 06/04/21 18:24 Dose: 999 mls/hr Documented by: Sodium Chloride (Normal Saline) 1,000 mls @ 100 mls/hr IV ASDIRECTED [facility] Last Admin: 06/04/21 23:39 Dose: 100 mls/hr Documented by: Insulin Human Regular (Insulin Regular, Human 100 Units/Ml 3 Ml Vial) 10 unit SUBCUT ONETIME ONE Stop: 06/04/21 17:09 Last Admin: 06/04/21 17:35 Dose: 10 unit Documented by: Non-Formulary Medication (Ubidecarenone [Co Q-10]) 10 mg PO DAILY [facility] Sodium Polystyrene Sulfonate (Sodium Polystyrene Sulfonate 15 Gm/60 Ml Susp 60 M l Bot) 45 gm PO NOW ONE Stop: 06/04/21 17:39 Last Admin: 06/04/21 18:20 Dose: 45 gm Documented by: - Exam General: Alert, Cooperative, No Acute Distress Lungs: Clear to Auscultation, Normal Respiratory Effort Cardiovascular: Regular Rate, Regular Rhythm GI/Abdominal Exam: Normal Bowel Sounds, Soft, Non-Tender Extremities: Normal Inspection Skin: Warm, Dry Physical Findings Comments:: Patient's left arm in a sling - Patient Data Lab Results Last 24 hrs: Laboratory Results - last 24 hr 06/06/21 06/06/21 06/06/21 Range/Units 05:43 05:43 05:43 WBC 8.16 (3.98-10.04) K/mm3 RBC 1.92 L (3.98-5.22) M/mm3 Hgb 6.4 L* (11.2-15.7) gm/dl Hct 19.7 L (34.1-44.9) % MCV 102.6 H (79.4-94.8) fl MCH 33.3 H (25.6-32.2) pg MCHC 32.5 (32.2-35.5) g/dl RDW Std Deviation 46.5 H (36.4-46.3) fL Plt Count 203 (182-369) K/mm3 MPV 10.1 (9.4-12.3) fl Neut % (Auto) 79.9 H (34.0-71.1) % Lymph % (Auto) 12.1 L (19.3-51.7) % Williams % (Auto) 7.7 (4.7-12.5) % Eos % (Auto) 0.1 L (0.7-5.8) Baso % (Auto) 0.2 (0.1-1.2) % Neut # (Auto) 6.51 H (1.56-6.13) K/mm3 Lymph # (Auto) 0.99 L (1.18-3.74) K/mm3 Williams # (Auto) 0.63 H (0.24-0.36) K/mm3 Eos # (Auto) 0.01 L (0.04-0.36) K/mm3 Baso # (Auto) 0.02 (0.01-0.08) K/mm3 Manual Slide Review Abnormal smear Sodium 139 (136-145) mEq/L Potassium 3.4 L (3.5-5.1) mEq/L Chloride 104 (98-107) mEq/L Carbon Dioxide 21 (21-32) mEq/L Anion Gap 17.4 H (5-15) BUN 53 H (7-18) mg/dL Creatinine 1.9 H (0.55-1.02) mg/dL Est Cr Clr Drug Dosing 18.12 mL/min Estimated GFR (MDRD) 26 (>60) mL/min BUN/Creatinine Ratio 27.9 H (14-18) Glucose 110 H (70-99) mg/dL Calcium 7.6 L (8.5-10.1) mg/dL Iron 20 L (50-170) ug/dL Ferritin 810 H (8-252) ng/ml Vitamin B12 866 (193-986) pg/ml Folate (8.6-58.9) ng/mL 06/06/21 Range/Units 05:43 WBC (3.98-10.04) K/mm3 RBC (3.98-5.22) M/mm3 Hgb (11.2-15.7) gm/dl Hct (34.1-44.9) % MCV (79.4-94.8) fl MCH (25.6-32.2) pg MCHC (32.2-35.5) g/dl RDW Std Deviation (36.4-46.3) fL Plt Count (182-369) K/mm3 MPV (9.4-12.3) fl Neut % (Auto) (34.0-71.1) % Lymph % (Auto) (19.3-51.7) % Williams % (Auto) (4.7-12.5) % Eos % (Auto) (0.7-5.8) Baso % (Auto) (0.1-1.2) % Neut # (Auto) (1.56-6.13) K/mm3 Lymph # (Auto) (1.18-3.74) K/mm3 Williams # (Auto) (0.24-0.36) K/mm3 Eos # (Auto) (0.04-0.36) K/mm3 Baso # (Auto) (0.01-0.08) K/mm3 Manual Slide Review Sodium (136-145) mEq/L Potassium (3.5-5.1) mEq/L Chloride (98-107) mEq/L Carbon Dioxide (21-32) mEq/L Anion Gap (5-15) BUN (7-18) mg/dL Creatinine (0.55-1.02) mg/dL Est Cr Clr Drug Dosing mL/min Estimated GFR (MDRD) (>60) mL/min BUN/Creatinine Ratio (14-18) Glucose (70-99) mg/dL Calcium (8.5-10.1) mg/dL Iron (50-170) ug/dL Ferritin (8-252) ng/ml Vitamin B12 (193-986) pg/ml Folate 71.6 H (8.6-58.9) ng/mL Result Diagrams: 06/06/21 05:43 06/06/21 05:43 Sepsis Event Note - Evaluation Sepsis Screening Result: No Definite Risk - Focused Exam Vital Signs: Vital Signs Temp Pulse Resp BP Pulse Ox 06/06/21 03:27 99.0 F 93 16 130/45 L 91 L 06/06/21 00:09 98.4 F 88 16 128/44 L 90 L - Problem List Review Problem List Initiated/Reviewed/Updated: Yes - My Orders Last 24 Hours: My Active Orders 06/05/21 10:33 traMADol [Ultram] 50 mg PO Q6H PRN 06/05/21 11:29 Consult to Occupational Therapy [OT Evaluation and Treatment] [CONS] Routine Consult to Physical Therapy [PT Evaluation and Treatment] [CONS] Routine 06/05/21 11:30 calcitrioL [Rocaltrol] 0.25 mcg PO MoTh@0600 06/05/21 21:00 Aspirin [Halfprin] 81 mg PO BEDTIME Cholecalciferol (Vitamin D3) [Vitamin D3] 25 mcg PO BID Ferrous Sulfate 324 mg PO BID Isosorbide Dinitrate [Isordil] 10 mg PO BID Multivitamins/Min/FA/Lut/Zeax [ICaps MV] 1 tab PO BID Rosuvastatin [Crestor] 10 mg PO BEDTIME Sacubitril/Valsartan [Entresto 49 MG-51 MG Tablet] 2 each PO BID carvediloL [Coreg] 3.125 mg PO BID 06/06/21 06:31 Transfuse PRBC [Transfuse Red Blood Cells] [COMM] Routine 06/06/21 06:34 FOLATE, RBC [REF] Routine 06/06/21 06:45 Anemia Reflex [OM.PC] PER UNIT ROUTINE 06/06/21 08:08 RED BLOOD CELLS LP [BBK] Routine TYPE AND SCREEN [BBK] Routine - Plan Plan:: Any 11-year-old female with a past medical history as listed above who presents to the [facility] emergency department after a syncopal episode likely due to intravascular volume depletion in extreme heat. 1. BRITANY with acute hyperkalemia. This was apparent at time of ER presentation. Now resolved. Status post intravascular volume repletion and aggressive treatment in the emergency department for hyperkalemia with the above-stated agents. Intermittent check of labs and replace electrolytes as necessary. Avoid nephrotoxins. 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 2. Syncopal episode. Likely precipitated by low intravascular volume while out in 100 degree heat. Status post crystalloid infusion. No evidence to suggest arrhythmia. Encourage good p.o. intake. 3. Multiple rib fractures as well as left clavicular fracture. Pain control as necessary and as needed for rib fractures. Allow for free-flowing atrial chest movement breathing mechanics. We will have the left shoulder immobilized with a sling. Patient has an outpatient orthopedics consultation tomorrow assuming she can be discharged in good standing. They will discuss nonoperative versus operative management. PT OT consultation. 4. Acute anemia. Likely secondary to dilutional effect. 2 units packed red blood cell transfusion with recheck later this evening. All other medical comorbidities are stable and nonactive conditions, we will continue her home medications at regular dose. CODE STATUS: Full code. DVT prophylaxis chemically.
[2021-06-06] MEDS: Carvedilol 3.125 MG Tab PO SCH ×2 (09:07→20:45)
[2021-06-06] MEDS: Ferrous Sulfate 324 MG Tab.EC PO SCH ×2 (09:07→20:46)
[2021-06-06] MEDS: Isosorbide Dinitrate 10 MG Tab PO SCH ×2 (09:08→20:45)
[2021-06-06] MEDS: Sacubitril/Valsartan 1 EACH Tablet PO SCH ×2 (09:08→20:44)
[2021-06-06] MEDS: Multivitamins with Minerals/Folic Acid/Lutein/Zeaxanth Tab PO SCH ×2 (09:09→20:44)
[2021-06-06] MEDS: Cholecalciferol (Vitamin D3) 25 MCG Tab PO SCH ×2 (09:09→20:44)
--- NOTE | 2021-06-06 10:46 | PCM.SN.2 ---
- Free Text/Narrative Note: Notified that patient was in need of a PIV. Patient to receive a blood transfusion and RN was only able to place a 24 wilda. PIV 20 g placed in left forearm without ultrasound with 2 attempts. Blood return noted, flushed easily, no signs of infiltration or phlebitis. PIV secured with clear Tegaderm and tape. Patient tolerated well. RN at bedside and aware of successful placement. Radha Bhakta, [employer]
[2021-06-06] MEDS ORDERED: Sodium Chloride 0.9% 250 ML IV SCH (11:15)
[2021-06-06] MEDS ORDERED: Sodium Chloride 0.9% 250 ML ONE (11:16)
[2021-06-06] MEDS: Aspirin 81 MG Tab.EC PO SCH (20:44)
[2021-06-06] MEDS: Rosuvastatin 10 MG Tab PO SCH (20:44)
[2021-06-07] MEDS: Heparin Sodium 5,000 Units/ML Vial SUBCUT SCH ×3 (01:30→16:46)
[2021-06-07] MEDS: traMADol 50 MG Tab PO PRN ×2 (08:55→21:51)
[2021-06-07] MEDS: Sacubitril/Valsartan 1 EACH Tablet PO SCH ×2 (08:58→21:54)
[2021-06-07] MEDS: Ferrous Sulfate 324 MG Tab.EC PO SCH ×2 (08:58→21:46)
[2021-06-07] MEDS: Multivitamins with Minerals/Folic Acid/Lutein/Zeaxanth Tab PO SCH ×2 (08:58→21:50)
[2021-06-07] MEDS: Cholecalciferol (Vitamin D3) 25 MCG Tab PO SCH ×2 (08:58→21:51)
[2021-06-07] MEDS: Carvedilol 3.125 MG Tab PO SCH ×2 (09:45→21:45)
[2021-06-07] MEDS: Isosorbide Dinitrate 10 MG Tab PO SCH ×2 (09:46→21:53)
--- NOTE | 2021-06-07 10:01 | PCM.PN ---
- General Info Date of Service: 06/07/21 Admission Dx/Problem (Free Text): Admission Diagnosis/Problem Admission Diagnosis/Problem Hyperkalemia Subjective Update: No acute events overnight. No new nursing concerns. Appropriate increase in hemoglobin status post 2 units packed red blood cell transfusion without complication as she has antibodies. Initial increase to 10 g/dL now at 9.1 this morning. No active signs of bleeding. Will hold off on further blood draws. Chemistries and acute kidney injury resolved and now back to status quo. Awaiting Ortho consultation for broken clavicle. Arranging disposition to snf facility. Patient states that she feels much better today and does not endorse any complaints. Pain is mostly controlled. - Patient Data Vitals - Most Recent: Last Vital Signs Temp 98.2 F 06/07/21 08:46 Pulse 83 06/07/21 09:45 Resp 20 06/07/21 08:46 BP 152/43 H 06/07/21 09:46 Pulse Ox 91 L 06/07/21 08:46 Weight - Most Recent: 117 lb 1.6 oz I&O - Last 24 Hours: Intake & Output 06/06/21 06/07/21 06/07/21 22:59 06:59 14:59 Intake Total 760 200 Output Total 400 300 Balance 360 -100 Lab Results Last 24 Hours: Laboratory Results - last 24 hr 06/06/21 06/06/21 06/07/21 Range/Units 05:43 20:00 04:35 WBC 11.75 H 9.95 (3.98-10.04) K/mm3 RBC 3.10 L 2.86 L (3.98-5.22) M/mm3 Hgb 10.0 L D 9.1 L (11.2-15.7) gm/dl Hct 29.5 L 27.4 L (34.1-44.9) % MCV 95.2 H D 95.8 H (79.4-94.8) fl MCH 32.3 H 31.8 (25.6-32.2) pg MCHC 33.9 33.2 (32.2-35.5) g/dl RDW Std Deviation 54.2 H 56.0 H (36.4-46.3) fL Plt Count 210 218 (182-369) K/mm3 MPV 9.8 9.9 (9.4-12.3) fl Neut % (Auto) 82.0 H 80.3 H (34.0-71.1) % Lymph % (Auto) 8.8 L 10.9 L (19.3-51.7) % [place] % (Auto) 8.3 7.8 (4.7-12.5) % Eos % (Auto) 0.4 L 0.7 (0.7-5.8) Baso % (Auto) 0.2 0.1 (0.1-1.2) % Neut # (Auto) 9.65 H 7.99 H (1.56-6.13) K/mm3 Lymph # (Auto) 1.03 L 1.08 L (1.18-3.74) K/mm3 [place] # (Auto) 0.97 H 0.78 H (0.24-0.36) K/mm3 Eos # (Auto) 0.05 0.07 (0.04-0.36) K/mm3 Baso # (Auto) 0.02 0.01 (0.01-0.08) K/mm3 Manual Slide Review Abnormal smear Sodium (136-145) mEq/L Potassium (3.5-5.1) mEq/L Chloride (98-107) mEq/L Carbon Dioxide (21-32) mEq/L Anion Gap (5-15) BUN (7-18) mg/dL Creatinine (0.55-1.02) mg/dL Est Cr Clr Drug Dosing mL/min Estimated GFR (MDRD) (>60) mL/min BUN/Creatinine Ratio (14-18) Glucose (70-99) mg/dL Calcium (8.5-10.1) mg/dL Blood Type A POSITIVE Gel Antibody Screen Negative Crossmatch See Detail 06/07/21 Range/Units 04:35 WBC (3.98-10.04) K/mm3 RBC (3.98-5.22) M/mm3 Hgb (11.2-15.7) gm/dl Hct (34.1-44.9) % MCV (79.4-94.8) fl MCH (25.6-32.2) pg MCHC (32.2-35.5) g/dl RDW Std Deviation (36.4-46.3) fL Plt Count (182-369) K/mm3 MPV (9.4-12.3) fl Neut % (Auto) (34.0-71.1) % Lymph % (Auto) (19.3-51.7) % [place] % (Auto) (4.7-12.5) % Eos % (Auto) (0.7-5.8) Baso % (Auto) (0.1-1.2) % Neut # (Auto) (1.56-6.13) K/mm3 Lymph # (Auto) (1.18-3.74) K/mm3 [place] # (Auto) (0.24-0.36) K/mm3 Eos # (Auto) (0.04-0.36) K/mm3 Baso # (Auto) (0.01-0.08) K/mm3 Manual Slide Review Sodium 135 L (136-145) mEq/L Potassium 3.8 (3.5-5.1) mEq/L Chloride 102 (98-107) mEq/L Carbon Dioxide 23 (21-32) mEq/L Anion Gap 13.8 (5-15) BUN 52 H (7-18) mg/dL Creatinine 1.9 H (0.55-1.02) mg/dL Est Cr Clr Drug Dosing 18.12 mL/min Estimated GFR (MDRD) 26 (>60) mL/min BUN/Creatinine Ratio 27.4 H (14-18) Glucose 110 H (70-99) mg/dL Calcium 7.8 L (8.5-10.1) mg/dL Blood Type Gel Antibody Screen Crossmatch [facility] Results Last 24 Hours: Microbiology 06/04/21 18:35 Blood Culture - Preliminary Blood - Venous - Lab Draw 06/04/21 18:35 Blood Culture - Preliminary Blood - Venous Med Orders - Current: Current Medications Acetaminophen (Acetaminophen 325 Mg Tab) 650 mg PO Q4H PRN PRN Reason: Pain Last Admin: 06/05/21 09:53 Dose: 650 mg Documented by: Aspirin (Aspirin 81 Mg Tab.Ec) 81 mg PO BEDTIME [facility] Last Admin: 06/06/21 20:44 Dose: 81 mg Documented by: Calcitriol (Calcitriol 0.25 Mcg Cap) 0.25 mcg PO MoTh@0600 [facility] Last Admin: 06/05/21 12:59 Dose: 0.25 mcg Documented by: Carvedilol (Carvedilol 3.125 Mg Tab) 3.125 mg PO BID [facility] Last Admin: 06/07/21 09:45 Dose: 3.125 mg Documented by: Cholecalciferol (Cholecalciferol (Vitamin D3) 25 Mcg Tab) 25 mcg PO BID [facility] Last Admin: 06/07/21 08:58 Dose: 25 mcg Documented by: Ferrous Sulfate (Ferrous Sulfate 324 Mg Tab.Ec) 324 mg PO BID [facility] Last Admin: 06/07/21 08:58 Dose: 324 mg Documented by: Heparin Sodium (Porcine) (Heparin Sodium 5,000 Units/Ml Vial) 5,000 units SUBCUT Q8H [facility] Last Admin: 06/07/21 09:45 Dose: 5,000 units Documented by: Sodium Chloride (Normal Saline) 250 mls @ 100 mls/hr IV ASDIRECTED [facility] Last Admin: 06/06/21 11:37 Dose: 100 mls/hr Documented by: Isosorbide Dinitrate (Isosorbide Dinitrate 10 Mg Tab) 10 mg PO BID [facility] Last Admin: 06/07/21 09:46 Dose: 10 mg Documented by: Ondansetron HCl (Ondansetron 4 Mg/2 Ml Sdv) 4 mg IV Q4H PRN PRN Reason: Nausea/Vomiting Rosuvastatin Calcium (Rosuvastatin 10 Mg Tab) 10 mg PO BEDTIME [facility] Last Admin: 06/06/21 20:44 Dose: 10 mg Documented by: Sodium Chloride (Sodium Chloride 0.9% 10 Ml Syringe) 10 ml FLUSH ASDIRECTED PRN PRN Reason: Keep Vein Open Last Admin: 06/04/21 16:36 Dose: 10 ml Documented by: Tramadol HCl (Tramadol 50 Mg Tab) 50 mg PO Q6H PRN PRN Reason: Pain Last Admin: 06/07/21 08:55 Dose: 50 mg Documented by: Vit A/Vit C/Vit E/Selen/Cu/Zn/Lutei (Multivitamins With Minerals/Folic Acid/Lutein/Zeaxanth Tab) 1 tab PO BID [facility] Last Admin: 06/07/21 08:58 Dose: 1 tab Documented by: Discontinued Medications Acetaminophen (Acetaminophen 325 Mg Tab) 975 mg PO ONETIME ONE Stop: 06/04/21 15:05 Last Admin: 06/04/21 16:11 Dose: 975 mg Documented by: Albuterol (Albuterol 0.083% 2.5 Mg/3 Ml Neb Soln) 2.5 mg NEB ONETIME ONE Stop: 06/04/21 17:08 Last Admin: 06/04/21 17:18 Dose: 2.5 mg Documented by: Calcium Gluconate (Calcium Gluconate 10% 1 Gm/10 Ml Sdv) 1 gm IVPUSH ONETIME ONE Stop: 06/04/21 17:09 Last Admin: 06/04/21 17:30 Dose: 1 gm Documented by: Dextrose/Water (50% Dextrose In Water 50 Ml Syringe) 50 ml IVPUSH ONETIME ONE Stop: 06/04/21 17:09 Last Admin: 06/04/21 17:25 Dose: 50 ml Documented by: Furosemide (Furosemide 20 Mg/2 Ml Vial) 20 mg IVPUSH ONETIME ONE Stop: 06/04/21 17:58 Last Admin: 06/04/21 18:24 Dose: 20 mg Documented by: Sodium Chloride (Normal Saline) 1,000 mls @ 999 mls/hr IV NOW STA Stop: 06/04/21 16:03 Last Admin: 06/04/21 15:50 Dose: 999 mls/hr Documented by: Sodium Chloride (Normal Saline) 1,000 mls @ 150 mls/hr IV NOW STA Stop: 06/05/21 00:32 Last Admin: 06/05/21 07:40 Dose: Not Given Documented by: Sodium Chloride (Normal Saline) 500 mls @ 999 mls/hr IV NOW STA Stop: 06/04/21 18:26 Last Admin: 06/04/21 18:24 Dose: 999 mls/hr Documented by: Sodium Chloride (Normal Saline) 1,000 mls @ 100 mls/hr IV ASDIRECTED [facility] Last Admin: 06/04/21 23:39 Dose: 100 mls/hr Documented by: Sodium Chloride (Normal Saline (Advbag)) Confirm Administered Dose 250 mls @ as directed .ROUTE .STK-MED ONE Stop: 06/06/21 11:17 Last Admin: 06/06/21 11:37 Dose: Not Given Documented by: Insulin Human Regular (Insulin Regular, Human 100 Units/Ml 3 Ml Vial) 10 unit SUBCUT ONETIME ONE Stop: 06/04/21 17:09 Last Admin: 06/04/21 17:35 Dose: 10 unit Documented by: Non-Formulary Medication (Ubidecarenone [Co Q-10]) 10 mg PO DAILY DANTE Sodium Polystyrene Sulfonate (Sodium Polystyrene Sulfonate 15 Gm/60 Ml Susp 60 Ml Bot) 45 gm PO NOW ONE Stop: 06/04/21 17:39 Last Admin: 06/04/21 18:20 Dose: 45 gm Documented by: - Exam General: Alert, No Acute Distress Lungs: Clear to Auscultation, Normal Respiratory Effort Cardiovascular: Regular Rate, Regular Rhythm GI/Abdominal Exam: Normal Bowel Sounds, Soft, Non-Tender Extremities: Normal Inspection Neurological: No New Focal Deficit Physical Findings Comments:: Left arm in a sling - Patient Data Lab Results Last 24 hrs: Laboratory Results - last 24 hr 06/06/21 06/06/21 06/07/21 Range/Units 05:43 20:00 04:35 WBC 11.75 H 9.95 (3.98-10.04) K/mm3 RBC 3.10 L 2.86 L (3.98-5.22) M/mm3 Hgb 10.0 L D 9.1 L (11.2-15.7) gm/dl Hct 29.5 L 27.4 L (34.1-44.9) % MCV 95.2 H D 95.8 H (79.4-94.8) fl MCH 32.3 H 31.8 (25.6-32.2) pg MCHC 33.9 33.2 (32.2-35.5) g/dl RDW Std Deviation 54.2 H 56.0 H (36.4-46.3) fL Plt Count 210 218 (182-369) K/mm3 MPV 9.8 9.9 (9.4-12.3) fl Neut % (Auto) 82.0 H 80.3 H (34.0-71.1) % Lymph % (Auto) 8.8 L 10.9 L (19.3-51.7) % [place] % (Auto) 8.3 7.8 (4.7-12.5) % Eos % (Auto) 0.4 L 0.7 (0.7-5.8) Baso % (Auto) 0.2 0.1 (0.1-1.2) % Neut # (Auto) 9.65 H 7.99 H (1.56-6.13) K/mm3 Lymph # (Auto) 1.03 L 1.08 L (1.18-3.74) K/mm3 [place] # (Auto) 0.97 H 0.78 H (0.24-0.36) K/mm3 Eos # (Auto) 0.05 0.07 (0.04-0.36) K/mm3 Baso # (Auto) 0.02 0.01 (0.01-0.08) K/mm3 Manual Slide Review Abnormal smear Sodium (136-145) mEq/L Potassium (3.5-5.1) mEq/L Chloride (98-107) mEq/L Carbon Dioxide (21-32) mEq/L Anion Gap (5-15) BUN (7-18) mg/dL Creatinine (0.55-1.02) mg/dL Est Cr Clr Drug Dosing mL/min Estimated GFR (MDRD) (>60) mL/min BUN/Creatinine Ratio (14-18) Glucose (70-99) mg/dL Calcium (8.5-10.1) mg/dL Blood Type A POSITIVE Gel Antibody Screen Negative Crossmatch See Detail 06/07/21 Range/Units 04:35 WBC (3.98-10.04) K/mm3 RBC (3.98-5.22) M/mm3 Hgb (11.2-15.7) gm/dl Hct (34.1-44.9) % MCV (79.4-94.8) fl MCH (25.6-32.2) pg MCHC (32.2-35.5) g/dl RDW Std Deviation (36.4-46.3) fL Plt Count (182-369) K/mm3 MPV (9.4-12.3) fl Neut % (Auto) (34.0-71.1) % Lymph % (Auto) (19.3-51.7) % [place] % (Auto) (4.7-12.5) % Eos % (Auto) (0.7-5.8) Baso % (Auto) (0.1-1.2) % Neut # (Auto) (1.56-6.13) K/mm3 Lymph # (Auto) (1.18-3.74) K/mm3 [place] # (Auto) (0.24-0.36) K/mm3 Eos # (Auto) (0.04-0.36) K/mm3 Baso # (Auto) (0.01-0.08) K/mm3 Manual Slide Review Sodium 135 L (136-145) mEq/L Potassium 3.8 (3.5-5.1) mEq/L Chloride 102 (98-107) mEq/L Carbon Dioxide 23 (21-32) mEq/L Anion Gap 13.8 (5-15) BUN 52 H (7-18) mg/dL Creatinine 1.9 H (0.55-1.02) mg/dL Est Cr Clr Drug Dosing 18.12 mL/min Estimated GFR (MDRD) 26 (>60) mL/min BUN/Creatinine Ratio 27.4 H (14-18) Glucose 110 H (70-99) mg/dL Calcium 7.8 L (8.5-10.1) mg/dL Blood Type Gel Antibody Screen Crossmatch Result Diagrams: 06/07/21 04:35 06/07/21 04:35 [facility] Results Last 24 hrs: Microbiology 06/04/21 18:35 Blood Culture - Preliminary Blood - Venous - Lab Draw 06/04/21 18:35 Blood Culture - Preliminary Blood - Venous Sepsis Event Note - Evaluation Sepsis Screening Result: No Definite Risk - Focused Exam Vital Signs: Vital Signs Temp Pulse Resp BP Pulse Ox 06/07/21 09:46 152/43 H 06/07/21 09:45 83 152/43 H 06/07/21 08:57 152/43 H 06/07/21 08:46 98.2 F 83 20 156/48 H 91 L 06/07/21 04:40 98.2 F 84 16 152/45 H 93 L - Problem List Review Problem List Initiated/Reviewed/Updated: Yes - My Orders Last 24 Hours: My Active Orders 06/06/21 11:15 Sodium Chloride 0.9% [Normal Saline] 250 ml IV ASDIRECTED - Plan Plan:: Any 11-year-old female with a past medical history as listed above who presents to the [facility] emergency department after a syncopal episode likely due to intravascular volume depletion in extreme heat. 1. BRITANY with acute hyperkalemia. This was apparent at time of ER presentation. Now resolved. Status post intravascular volume repletion and aggressive treatment in the emergency department for hyperkalemia with the above-stated agents. Intermittent check of labs and replace electrolytes as necessary. Avoid nephrotoxins. 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 2. Syncopal episode. Likely precipitated by low intravascular volume while out in 100 degree heat. Status post crystalloid infusion. No evidence to suggest arrhythmia. Encourage good p.o. intake. 3. Multiple rib fractures as well as left clavicular fracture. Pain control as necessary and as needed for rib fractures. Allow for free-flowing atrial chest movement breathing mechanics. We will have the left shoulder immobilized with a sling. Continue PT and OT consultation and treatment. Disposition to snf facility when accepted. Awaiting orthopedics consultation in the hospital. 4. Acute anemia. Likely secondary to dilutional effect. Status post 2 units packed red blood cell transfusion with appropriate increase. Intermittent check of labs. All other medical comorbidities are stable and nonactive conditions, we will continue her home medications at regular dose. CODE STATUS: Full code. DVT prophylaxis chemically.
[2021-06-07] MEDS: Aspirin 81 MG Tab.EC PO SCH (21:50)
[2021-06-07] MEDS: Rosuvastatin 10 MG Tab PO SCH (21:51)
[2021-06-08] MEDS: Heparin Sodium 5,000 Units/ML Vial SUBCUT SCH ×2 (01:25→08:44)
[2021-06-08] MEDS: traMADol 50 MG Tab PO PRN (06:12)
[2021-06-08] MEDS: Calcitriol 0.25 MCG Cap PO SCH (06:12)
--- NOTE | 2021-06-08 08:37 | PCM.DCSUM1 ---
Discharge Summary - Hospital Course Free Text/Narrative:: Any 81-year-old female with a past medical history as listed below who presented to the [facility] emergency department after a syncopal episode likely due to intravascular volume depletion in extreme heat. 1. BRITANY with acute hyperkalemia. This was apparent at time of ER presentation. Resolved within a few hours after aggressive hydration. Status post intravascular volume repletion and aggressive treatment in the emergency department for hyperkalemia with the insulin, Kayexalate, albuterol. Intermittent check of labs was performed. Patient has remained status quo. Avoided nephrotoxins. 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 2. Syncopal episode. Likely precipitated by low intravascular volume while out in 100 degree heat. Status post crystalloid infusion. No evidence to suggest arrhythmia. Encouraged good p.o. intake. 3. Multiple rib fractures as well as left clavicular fracture. Pain control as necessary and as needed for rib fractures. Allow for free-flowing atrial chest movement breathing mechanics. We will have the left shoulder immobilized with a sling. Continue PT and OT consultation and treatment. Disposition to fpc facility. Patient to be seen by orthopedics on an outpatient basis for nonsurgical and surgical options to be presented. 4. Acute anemia. Likely secondary to dilutional effect. Status post 2 units packed red blood cell transfusion with appropriate increase. Intermittent check of labs recommended on outpatient follow-up. All other medical comorbidities were stable and nonactive conditions, continued her home medications at regular dose. CODE STATUS: Full code. DVT prophylaxis chemically. HPI Initial Comments: Patient is a 81-year-old female with a past medical history as listed below who presented to the [facility] emergency department with a chief complaint of a syncopal episode in the heat yesterday. The patient states that she was in her usual state of health when she suddenly became lightheaded/dizzy and lost consciousness for an unknown amount of time in her garden while working outside. The patient had had minimal p.o. intake for both solids and liquids all day yesterday according to her own account as well as her daughter's account. The patient states that she fell and hit her head on the left side, a small laceration was the result. The patient had also began to experience left shoulder discomfort as well as upper chest discomfort as status decided that she hit. It is hard to mobilize in all planes of movement at the shoulder as well as circumferential movement. She was brought in for evaluation, in which physical examination was notable for tenderness in the left upper chest and decreased range of motion in the left shoulder. Laboratory values were notable for acute kidney injury on chronic disease as well as hyperkalemia requiring urgent treatment. There were no significant EKG changes. No significant telemetry events in the emergency department. The patient was aggressively treated with Lasix, insulin, and Kayexalate. Patient was also hydrated with crystalloid aggressively. Radiographic imaging was notable for a left clavicle fracture as well as fractures of the first, second and fifth ribs on the left. The overnight provider was contacted regarding admission to the floor and was accepted for ongoing treatment. I inherited the patient this morning and have spoken with her and examined her at bedside, along with the patient's primary nurse with her daughter present in the room. At current time, the patient states that she feels okay but has some pain in the left shoulder. No other specific complaints. A 14 point review of systems was reviewed in its entirety with the patient as well as her daughter and only pertinent for the above information. CODE STATUS: Full code. Left Clavicle Pain Score (Numeric/FACES): 4 - Related Data Allergies/Adverse Reactions: Allergies Allergy/AdvReac Type Severity Reaction Status Date / Time irbesartan [From Avapro] Allergy Other Verified 06/04/21 14:50 levofloxacin Allergy Rash Verified 06/04/21 14:50 lisinopril Allergy Other Verified 06/04/21 14:50 Sulfa (Sulfonamide Allergy Hives Verified 06/04/21 14:50 Antibiotics) fosinopril sodium AdvReac Headache Verified 06/04/21 14:50 [From Monopril] Home Medications: Home Meds Aspirin [Halfprin] 81 mg PO DAILY 04/02/16 [History] Furosemide [Lasix] 20 mg PO ASDIRECTED 04/02/16 [History] Isosorbide Dinitrate 10 mg PO BID 04/02/16 [History] Ferrous Sulfate [Iron] 65 mg PO BID 08/08/20 [History] Rosuvastatin [Crestor] 10 mg PO BEDTIME 08/08/20 [History] allopurinoL [Zyloprim] 100 mg PO BEDTIME 08/08/20 [History] calcitrioL [Rocaltrol] 0.25 mcg PO ASDIRECTED 08/08/20 [History] carvediloL [Carvedilol] 3.125 mg PO BID 02/25/21 [History] Entresto 1 tab PO BID 06/04/21 [History] Cholecalciferol (Vitamin D3) [Vitamin D3] 1,000 unit PO BID 06/04/21 [History] Ubidecarenone [Co Q-10] 10 mg PO DAILY 06/04/21 [History] Vit A/Vit C/Vit E/Zinc/Copper [Preservision] 1 tab PO BID 06/04/21 [History] Past Medical History HEENT History: Reports: Impaired Vision Other HEENT History: wears glasses and contacts Cardiovascular History: Reports: CAD, Hypertension, PA Respiratory History: Reports: Asthma Genitourinary History: Reports: Other (See Below) Other Genitourinary History: one kidney, Stage 4 kidney disease MANAGER OF DRILLING History: Reports: Other OB/BYN History: Musculoskeletal History: Reports: Arthritis, Fracture Other Musculoskeletal History: wrist FX x2, Humerus fx Hematologic History: Reports: Iron Deficiency Dermatologic History: Reports: Other (See Below) 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 - Infectious Disease History Infectious Disease History: Reports: Measles - Past Surgical History HEENT Surgical History: Reports: Cataract Surgery, LASIK Cardiovascular Surgical History: Reports: Carotid Endarterectomy, Carotid Stents, Coronary Artery Stent, Vascular Surgery, Other (See Below) Other Cardiovascular Surgeries/Procedures: Carotid artery surgery Respiratory Surgical History: Reports: None Female Surgical History: Reports: None Musculoskeletal Surgical History: Reports: None, Other (See Below) Other Musculoskeletal Surgeries/Procedures:: left wrist surgery with repair Dermatological Surgical History: Reports: None Social & Family History - Family History Family Medical History: Unobtainable - Tobacco Use Tobacco Use Status *Q: Former Tobacco User Years of Tobacco use: 20 Used Tobacco, but Quit: Yes Month/Year Tobacco Last Used: 1987 Second Hand Smoke Exposure: No - Caffeine Use Caffeine Use: Reports: Coffee - Alcohol Use Days Per Week of Alcohol Use: 1 Number of Drinks Per Day: 1 Total Drinks Per Week: 1 Date of Last Drink: 06/03/21 Time of Last Drink: 18:00 - Recreational Drug Use Recreational Drug Use: No H&P Review of Systems - Review of Systems: Review Of Systems: Comprehensive ROS is negative, except as noted in HPI. Exam - Exam Exam: See Below - Vital Signs Vital Signs: Last Vital Signs Temp 97.9 F 06/05/21 07:41 Pulse 92 06/05/21 07:41 Resp 20 06/05/21 07:41 BP 123/43 L 06/05/21 07:41 Pulse Ox 93 L 06/05/21 07:41 Weight: 114 lb 8 oz - Exam Physical Exam Comments:: General: Awake and alert, in no apparent distress. Nontoxic-appearing. HEENT: Normocephalic, mild laceration to the left upper scalp. Extra ocular muscles intact. Pupils equal and reactive to light. Nares are patent. Oropharynx clear without erythema or exudate. Tongue is midline. Neck: Supple without lymphadenopathy. No goiter. Trachea midline. Heart: Regular rate and rhythm. S1 and S2 heard without murmur or extrasystoles. Lungs: Clear to auscultation bilaterally. No wheezing, rales, rhonchi. Abdomen: Soft, nontender, nondistended. Positive bowel sounds. No CVA tenderness. No suprapubic tenderness. Extremities: Warm and perfused. No clubbing, cyanosis, or edema. Integument: No obvious rash or jaundice. No lymphadenopathy. Neurologic: Cranial nerves II through XII grossly intact. No obvious gross motor or sensory deficits. Skill skeletal: No obvious joint deformities, effusions. Limited range of motion at the left shoulder in all planes as well as circumferential movement. Psychiatric: Normal mood and affect. - Discharge Data Discharge Date: 06/08/21 Discharge Disposition: DC/Tfer to SNF 03 Condition: Good - Referral to Home Health Primary Care Physician: Rowena Alexandre NP - Patient Summary/Data Consults: Consultations 06/05/21 11:29 Consult to Occupational Therapy [OT Evaluation and Treatment] [CONS] Routine Consult to Physical Therapy [PT Evaluation and Treatment] [CONS] Routine - Patient Instructions Diet: Heart Healthy Diet Activity: As Tolerated Other/Special Instructions: Activity and diet are as tolerated. Continue taking medications as instructed at time of discharge. Follow-up with orthopedics for consultation regarding possible surgical options. Follow-up with PCP within 1 to 2 weeks time. Recommend recheck of CBC in a week or 2. If you experience any signs or symptoms that warranted this admission please do not hesitate to call your primary care physician or present to emergency department for an immediate evaluation. - Discharge Plan *PRESCRIPTION DRUG MONITORING PROGRAM REVIEWED*: Not Applicable *COPY OF PRESCRIPTION DRUG MONITORING REPORT IN PATIENT [place]: Not Applicable Prescriptions/Med Rec: Acetaminophen [Tylenol] 650 mg PO Q4H PRN #60 tablet PRN Reason: Pain traMADol [Ultram] 50 mg PO Q6H PRN #20 tablet PRN Reason: Pain Home Medications: Home Meds Aspirin [Halfprin] 81 mg PO DAILY 04/02/16 [History] Furosemide [Lasix] 20 mg PO ASDIRECTED 04/02/16 [History] Isosorbide Dinitrate 10 mg PO BID 04/02/16 [History] Ferrous Sulfate [Iron] 65 mg PO BID 08/08/20 [History] Rosuvastatin [Crestor] 10 mg PO BEDTIME 08/08/20 [History] allopurinoL [Zyloprim] 100 mg PO BEDTIME 08/08/20 [History] calcitrioL [Rocaltrol] 0.25 mcg PO ASDIRECTED 08/08/20 [History] carvediloL [Carvedilol] 3.125 mg PO BID 02/25/21 [History] Cholecalciferol (Vitamin D3) [Vitamin D3] 1,000 unit PO BID 06/04/21 [History] Ubidecarenone [Co Q-10] 10 mg PO DAILY 06/04/21 [History] Vit A/Vit C/Vit E/Zinc/Copper [Preservision] 1 tab PO BID 06/04/21 [History] Sacubitril/Valsartan [Entresto 97 mg-103 mg Tablet] 1 each PO BID 06/05/21 [History] Acetaminophen [Tylenol] 650 mg PO Q4H PRN #60 tablet 06/08/21 [Rx] traMADol [Ultram] 50 mg PO Q6H PRN #20 tablet 06/08/21 [Rx] Patient Handouts: Clavicle Fracture, [id number], Rib Fracture, [id number] Referrals: Alverto Graham MD [Physician] - 06/14/21 12:45 pm (Check in at 12:30 Please Bring Photo ID and insurance card. Check in at receptionist/telephone operator desk on floor [facility]. ) Rowena Alexandre, LUCY [Primary Care Provider] - 06/12/21 9:00 am (Please come 15 minutes prior to the appointment to register) - Discharge Summary/Plan Comment DC Time >30 min.: Yes Total # of Minutes for Discharge Time: 35 - General Info Date of Service: 06/08/21 Admission Dx/Problem (Free Text: Admission Diagnosis/Problem Admission Diagnosis/Problem Hyperkalemia Subjective Update: No acute events overnight. No new nursing concerns. Patient scheduled for discharge to local fpc facility this morning. Patient does not endorse any new complaints. Pain is controlled. - Patient Data Vitals - Most Recent: Last Vital Signs Temp 98.8 F 06/08/21 06:16 Pulse 88 06/08/21 06:16 Resp 18 06/08/21 06:16 BP 99/85 06/08/21 06:16 Pulse Ox 93 L 06/08/21 06:16 Weight - Most Recent: 121 lb 8 oz I&O - Last 24 hours: Intake & Output 06/07/21 06/08/21 06/08/21 22:59 06:59 14:59 Intake Total 720 400 Output Total 420 400 Balance 300 0 Med Orders - Current: Current Medications Acetaminophen (Acetaminophen 325 Mg Tab) 650 mg PO Q4H PRN PRN Reason: Pain Last Admin: 06/05/21 09:53 Dose: 650 mg Documented by: Aspirin (Aspirin 81 Mg Tab.Ec) 81 mg PO BEDTIME [facility] Last Admin: 06/07/21 21:50 Dose: 81 mg Documented by: Calcitriol (Calcitriol 0.25 Mcg Cap) 0.25 mcg PO MoTh@0600 [facility] Last Admin: 06/08/21 06:12 Dose: 0.25 mcg Documented by: Carvedilol (Carvedilol 3.125 Mg Tab) 3.125 mg PO BID [facility] Last Admin: 06/07/21 21:45 Dose: 3.125 mg Documented by: Cholecalciferol (Cholecalciferol (Vitamin D3) 25 Mcg Tab) 25 mcg PO BID [facility] Last Admin: 06/07/21 21:51 Dose: 25 mcg Documented by: Ferrous Sulfate (Ferrous Sulfate 324 Mg Tab.Ec) 324 mg PO BID [facility] Last Admin: 06/07/21 21:46 Dose: 324 mg Documented by: Heparin Sodium (Porcine) (Heparin Sodium 5,000 Units/Ml Vial) 5,000 units SUBCUT Q8H [facility] Last Admin: 06/08/21 01:25 Dose: 5,000 units Documented by: Isosorbide Dinitrate (Isosorbide Dinitrate 10 Mg Tab) 10 mg PO BID [facility] Last Admin: 06/07/21 21:53 Dose: 10 mg Documented by: Ondansetron HCl (Ondansetron 4 Mg/2 Ml Sdv) 4 mg IV Q4H PRN PRN Reason: Nausea/Vomiting Rosuvastatin Calcium (Rosuvastatin 10 Mg Tab) 10 mg PO BEDTIME [facility] Last Admin: 06/07/21 21:51 Dose: 10 mg Documented by: Sodium Chloride (Sodium Chloride 0.9% 10 Ml Syringe) 10 ml FLUSH ASDIRECTED PRN PRN Reason: Keep Vein Open Last Admin: 06/04/21 16:36 Dose: 10 ml Documented by: Tramadol HCl (Tramadol 50 Mg Tab) 50 mg PO Q6H PRN PRN Reason: Pain Last Admin: 06/08/21 06:12 Dose: 50 mg Documented by: Vit A/Vit C/Vit E/Selen/Cu/Zn/Lutei (Multivitamins With Minerals/Folic Acid/Lutein/Zeaxanth Tab) 1 tab PO BID [facility] Last Admin: 06/07/21 21:50 Dose: 1 tab Documented by: Discontinued Medications Acetaminophen (Acetaminophen 325 Mg Tab) 975 mg PO ONETIME ONE Stop: 06/04/21 15:05 Last Admin: 06/04/21 16:11 Dose: 975 mg Documented by: Albuterol (Albuterol 0.083% 2.5 Mg/3 Ml Neb Soln) 2.5 mg NEB ONETIME ONE Stop: 06/04/21 17:08 Last Admin: 06/04/21 17:18 Dose: 2.5 mg Documented by: Calcium Gluconate (Calcium Gluconate 10% 1 Gm/10 Ml Sdv) 1 gm IVPUSH ONETIME ONE Stop: 06/04/21 17:09 Last Admin: 06/04/21 17:30 Dose: 1 gm Documented by: Dextrose/Water (50% Dextrose In Water 50 Ml Syringe) 50 ml IVPUSH ONETIME ONE Stop: 06/04/21 17:09 Last Admin: 06/04/21 17:25 Dose: 50 ml Documented by: Furosemide (Furosemide 20 Mg/2 Ml Vial) 20 mg IVPUSH ONETIME ONE Stop: 06/04/21 17:58 Last Admin: 06/04/21 18:24 Dose: 20 mg Documented by: Sodium Chloride (Normal Saline) 1,000 mls @ 999 mls/hr IV NOW STA Stop: 06/04/21 16:03 Last Admin: 06/04/21 15:50 Dose: 999 mls/hr Documented by: Sodium Chloride (Normal Saline) 1,000 mls @ 150 mls/hr IV NOW STA Stop: 06/05/21 00:32 Last Admin: 06/05/21 07:40 Dose: Not Given Documented by: Sodium Chloride (Normal Saline) 500 mls @ 999 mls/hr IV NOW STA Stop: 06/04/21 18:26 Last Admin: 06/04/21 18:24 Dose: 999 mls/hr Documented by: Sodium Chloride (Normal Saline) 1,000 mls @ 100 mls/hr IV ASDIRECTED [facility] Last Admin: 06/04/21 23:39 Dose: 100 mls/hr Documented by: Sodium Chloride (Normal Saline) 250 mls @ 100 mls/hr IV ASDIRECTED [facility] Last Admin: 06/06/21 11:37 Dose: 100 mls/hr Documented by: Sodium Chloride (Normal Saline (Advbag)) Confirm Administered Dose 250 mls @ as directed .ROUTE .STK-MED ONE Stop: 06/06/21 11:17 Last Admin: 06/06/21 11:37 Dose: Not Given Documented by: Insulin Human Regular (Insulin Regular, Human 100 Units/Ml 3 Ml Vial) 10 unit SUBCUT ONETIME ONE Stop: 06/04/21 17:09 Last Admin: 06/04/21 17:35 Dose: 10 unit Documented by: Non-Formulary Medication (Ubidecarenone [Co Q-10]) 10 mg PO DAILY [facility] Sodium Polystyrene Sulfonate (Sodium Polystyrene Sulfonate 15 Gm/60 Ml Susp 60 Ml Bot) 45 gm PO NOW ONE Stop: 06/04/21 17:39 Last Admin: 06/04/21 18:20 Dose: 45 gm Documented by: - Exam Quality Assessment: Denies: Supplemental Oxygen General: Reports: Alert, Cooperative, No Acute Distress Lungs: Reports: Clear to Auscultation, Normal Respiratory Effort Cardiovascular: Reports: Regular Rate, Regular Rhythm GI/Abdominal Exam: Normal Bowel Sounds, Soft, Non-Tender Extremities: Normal Inspection, Other (Left arm in a sling) Skin: Reports: Warm, Dry Neurological: Reports: No New Focal Deficit
[2021-06-08] MEDS: Sacubitril/Valsartan 1 EACH Tablet PO SCH (08:43)
[2021-06-08] MEDS: Ferrous Sulfate 324 MG Tab.EC PO SCH (08:43)
[2021-06-08] MEDS: Cholecalciferol (Vitamin D3) 25 MCG Tab PO SCH (08:44)
[2021-06-08] MEDS: Multivitamins with Minerals/Folic Acid/Lutein/Zeaxanth Tab PO SCH (08:44)
[2021-06-08] MEDS: Carvedilol 3.125 MG Tab PO SCH (08:44)
[2021-06-08] MEDS: Isosorbide Dinitrate 10 MG Tab PO SCH (08:48)
[2021-06-08 08:50] VITALS: BP 149/88; PULSE 82
--- NOTE | 2021-06-08 09:31 | PCM.PN ---
- General Info Date of Service: 06/08/21 - Patient Data Vitals - Most Recent: Last Vital Signs Temp 98.8 F 06/08/21 06:16 Pulse 82 06/08/21 08:44 Resp 18 06/08/21 06:16 BP 149/88 H 06/08/21 08:48 Pulse Ox 93 L 06/08/21 06:16 Weight - Most Recent: 121 lb 8 oz I&O - Last 24 Hours: Intake & Output 06/07/21 06/08/21 06/08/21 22:59 06:59 14:59 Intake Total 720 400 Output Total 420 400 Balance 300 0 Lab Results Last 24 Hours: Laboratory Results - last 24 hr 06/08/21 Range/Units 08:17 SARS-CoV-2 RNA (FELA) Negative (NEGATIVE) Med Orders - Current: Current Medications Acetaminophen (Acetaminophen 325 Mg Tab) 650 mg PO Q4H PRN PRN Reason: Pain Last Admin: 06/05/21 09:53 Dose: 650 mg Documented by: Aspirin (Aspirin 81 Mg Tab.Ec) 81 mg PO BEDTIME [facility] Last Admin: 06/07/21 21:50 Dose: 81 mg Documented by: Calcitriol (Calcitriol 0.25 Mcg Cap) 0.25 mcg PO MoTh@0600 [facility] Last Admin: 06/08/21 06:12 Dose: 0.25 mcg Documented by: Carvedilol (Carvedilol 3.125 Mg Tab) 3.125 mg PO BID [facility] Last Admin: 06/08/21 08:44 Dose: 3.125 mg Documented by: Cholecalciferol (Cholecalciferol (Vitamin D3) 25 Mcg Tab) 25 mcg PO BID [facility] Last Admin: 06/08/21 08:44 Dose: 25 mcg Documented by: Ferrous Sulfate (Ferrous Sulfate 324 Mg Tab.Ec) 324 mg PO BID [facility] Last Admin: 06/08/21 08:43 Dose: 324 mg Documented by: Heparin Sodium (Porcine) (Heparin Sodium 5,000 Units/Ml Vial) 5,000 units SUBCUT Q8H [facility] Last Admin: 06/08/21 01:25 Dose: 5,000 units Documented by: Isosorbide Dinitrate (Isosorbide Dinitrate 10 Mg Tab) 10 mg PO BID [facility] Last Admin: 06/08/21 08:48 Dose: 10 mg Documented by: Ondansetron HCl (Ondansetron 4 Mg/2 Ml Sdv) 4 mg IV Q4H PRN PRN Reason: Nausea/Vomiting Rosuvastatin Calcium (Rosuvastatin 10 Mg Tab) 10 mg PO BEDTIME [facility] Last Admin: 06/07/21 21:51 Dose: 10 mg Documented by: Sodium Chloride (Sodium Chloride 0.9% 10 Ml Syringe) 10 ml FLUSH ASDIRECTED PRN PRN Reason: Keep Vein Open Last Admin: 06/04/21 16:36 Dose: 10 ml Documented by: Tramadol HCl (Tramadol 50 Mg Tab) 50 mg PO Q6H PRN PRN Reason: Pain Last Admin: 06/08/21 06:12 Dose: 50 mg Documented by: Vit A/Vit C/Vit E/Selen/Cu/Zn/Lutei (Multivitamins With Minerals/Folic Acid/Lutein/Zeaxanth Tab) 1 tab PO BID [facility] Last Admin: 06/08/21 08:44 Dose: 1 tab Documented by: Discontinued Medications Acetaminophen (Acetaminophen 325 Mg Tab) 975 mg PO ONETIME ONE Stop: 06/04/21 15:05 Last Admin: 06/04/21 16:11 Dose: 975 mg Documented by: Albuterol (Albuterol 0.083% 2.5 Mg/3 Ml Neb Soln) 2.5 mg NEB ONETIME ONE Stop: 06/04/21 17:08 Last Admin: 06/04/21 17:18 Dose: 2.5 mg Documented by: Calcium Gluconate (Calcium Gluconate 10% 1 Gm/10 Ml Sdv) 1 gm IVPUSH ONETIME ONE Stop: 06/04/21 17:09 Last Admin: 06/04/21 17:30 Dose: 1 gm Documented by: Dextrose/Water (50% Dextrose In Water 50 Ml Syringe) 50 ml IVPUSH ONETIME ONE Stop: 06/04/21 17:09 Last Admin: 06/04/21 17:25 Dose: 50 ml Documented by: Furosemide (Furosemide 20 Mg/2 Ml Vial) 20 mg IVPUSH ONETIME ONE Stop: 06/04/21 17:58 Last Admin: 06/04/21 18:24 Dose: 20 mg Documented by: Sodium Chloride (Normal Saline) 1,000 mls @ 999 mls/hr IV NOW STA Stop: 06/04/21 16:03 Last Admin: 06/04/21 15:50 Dose: 999 mls/hr Documented by: Sodium Chloride (Normal Saline) 1,000 mls @ 150 mls/hr IV NOW STA Stop: 06/05/21 00:32 Last Admin: 06/05/21 07:40 Dose: Not Given Documented by: Sodium Chloride (Normal Saline) 500 mls @ 999 mls/hr IV NOW STA Stop: 06/04/21 18:26 Last Admin: 06/04/21 18:24 Dose: 999 mls/hr Documented by: Sodium Chloride (Normal Saline) 1,000 mls @ 100 mls/hr IV ASDIRECTED [facility] Last Admin: 06/04/21 23:39 Dose: 100 mls/hr Documented by: Sodium Chloride (Normal Saline) 250 mls @ 100 mls/hr IV ASDIRECTED [facility] Last Admin: 06/06/21 11:37 Dose: 100 mls/hr Documented by: Sodium Chloride (Normal Saline (Advbag)) Confirm Administered Dose 250 mls @ as directed .ROUTE .STK-MED ONE Stop: 06/06/21 11:17 Last Admin: 06/06/21 11:37 Dose: Not Given Documented by: Insulin Human Regular (Insulin Regular, Human 100 Units/Ml 3 Ml Vial) 10 unit SUBCUT ONETIME ONE Stop: 06/04/21 17:09 Last Admin: 06/04/21 17:35 Dose: 10 unit Documented by: Non-Formulary Medication (Ubidecarenone [Co Q-10]) 10 mg PO DAILY [facility] Sodium Polystyrene Sulfonate (Sodium Polystyrene Sulfonate 15 Gm/60 Ml Susp 60 Ml Bot) 45 gm PO NOW ONE Stop: 06/04/21 17:39 Last Admin: 06/04/21 18:20 Dose: 45 gm Documented by: - Patient Data Lab Results Last 24 hrs: Laboratory Results - last 24 hr 06/08/21 Range/Units 08:17 SARS-CoV-2 RNA (FELA) Negative (NEGATIVE) Result Diagrams: 06/07/21 04:35 06/07/21 04:35 Sepsis Event Note - Evaluation Sepsis Screening Result: No Definite Risk - Focused Exam Vital Signs: Vital Signs Temp Pulse Resp BP Pulse Ox 06/08/21 08:48 149/88 H 06/08/21 08:44 82 149/88 H 06/08/21 06:16 98.8 F 88 18 99/85 93 L 06/07/21 21:53 150/50 H 06/07/21 21:45 97.5 F 82 16 150/50 H 91 L - Problem List Review Problem List Initiated/Reviewed/Updated: Yes - My Orders Last 24 Hours: My Active Orders 06/07/21 16:46 RT Incentive Spirometry [RC] ASDIRECTED 06/08/21 08:06 Ready for Discharge [RC] PER UNIT ROUTINE - Plan Plan:: Any 11-year-old female with a past medical history as listed above who presents to the [facility] emergency department after a syncopal episode likely due to intravascular volume depletion in extreme heat. 1. BRITANY with acute hyperkalemia. This was apparent at time of ER presentation. Now resolved. Status post intravascular volume repletion and aggressive treatment in the emergency department for hyperkalemia with the above-stated agents. Intermittent check of labs and replace electrolytes as necessary. Avoid nephrotoxins. 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 2. Syncopal episode. Likely precipitated by low intravascular volume while out in 100 degree heat. Status post crystalloid infusion. No evidence to suggest arrhythmia. Encourage good p.o. intake. 3. Multiple rib fractures as well as left clavicular fracture. Addendum as requested: Patient has multiple broken ribs on left: ICD-10 522.42XA & Fractured left clavicle: ICD-10 542.002A Pain control as necessary and as needed for rib fractures. Allow for free-flowing atrial chest movement breathing mechanics. We will have the left shoulder immobilized with a sling. Continue PT and OT consultation and treatment[facility]. Awaiting orthopedics consultation in the hospital. 4. Acute anemia. Likely secondary to dilutional effect. Status post 2 units packed red blood cell transfusion with appropriate increase. Intermittent check of labs. All other medical comorbidities are stable and nonactive conditions, we will continue her home medications at regular dose. CODE STATUS: Full code. DVT prophylaxis chemically. Non-Billable progress note
== END 2021-06-08 09:55 | DRG 683 ==
LOC: JD.ED 14:40 → JD.MS 18:26
PROVIDERS: ADMIT Hospitalist; ATTEND Hospitalist
PROC: 30233N1 Transfusion of Nonautologous Red Blood Cells into Peripheral Vein, Percutaneous Approach (ICD-10-PCS; principal; 2021-06-06)
DX: N17.9 Acute kidney failure, unspecified (principal); S22.42XA Multiple fractures of ribs, left side, initial encounter for closed fracture; E87.5 Hyperkalemia; N18.4 Chronic kidney disease, stage 4 (severe); E86.9 Volume depletion, unspecified; T67.9XXA Effect of heat and light, unspecified, initial encounter; E86.0 Dehydration; I12.9 Hypertensive chronic kidney disease with stage 1 through stage 4 chronic kidney disease, or unspecified chronic kidney disease; D36.9 Benign neoplasm, unspecified site; H54.7 Unspecified visual loss; Z20.822 Contact with and (suspected) exposure to COVID-19; I25.10 Atherosclerotic heart disease of native coronary artery without angina pectoris; W01.10XA Fall on same level from slipping, tripping and stumbling with subsequent striking against unspecified object, initial encounter; S42.002A Fracture of unspecified part of left clavicle, initial encounter for closed fracture; J45.909 Unspecified asthma, uncomplicated; D63.1 Anemia in chronic kidney disease; M19.90 Unspecified osteoarthritis, unspecified site; Z95.5 Presence of coronary angioplasty implant and graft; Z98.49 Cataract extraction status, unspecified eye; Z88.2 Allergy status to sulfonamides; Z88.1 Allergy status to other antibiotic agents; Z88.8 Allergy status to other drugs, medicaments and biological substances; Z79.82 Long term (current) use of aspirin; Z79.899 Other long term (current) drug therapy; Z87.891 Personal history of nicotine dependence; I25.2 Old myocardial infarction
CPT/HCPCS: 36415; 70450; 71101; 73000; 73030; 73140; 80053; 81001; 83735; 84484; 85025; 86140; 93005; 94640; 96374; 96375; 99285; A9270 ×2; J0610; J1815; J1940; J7030 ×2; U0002; 36430; 80048; 82607; 82728; 82746; 83540; 83605; 84132; 86850; 86900; 86901; 86922; 87040; 93010; 97116-GP; 97162-GP; 97530-GP; 99222; 99232; 99239; J1644; J7050; P9016

== ENCOUNTER 2021-11-25 17:44 | Emergency (ER) | payer MEDICARE, OTHER ==
[2021-11-25 18:04] VITALS: BP 187/77; PULSE 84
== END 2021-11-25 19:12 | disposition home or self-care (01) ==
LOC: JD.ED 17:44
DX: N39.0 Urinary tract infection, site not specified (principal); I25.10 Atherosclerotic heart disease of native coronary artery without angina pectoris; I10 Essential (primary) hypertension; I25.2 Old myocardial infarction; Z88.2 Allergy status to sulfonamides; Z88.1 Allergy status to other antibiotic agents; Z88.8 Allergy status to other drugs, medicaments and biological substances
CPT/HCPCS: 36415; 80053; 81001; 85025; 87086; 99284-25

== ENCOUNTER 2021-11-27 14:06 | Inpatient (IN) | payer MEDICARE, OTHER ==
[2021-11-27] MEDS ORDERED: Sodium Chloride 0.9% 10 ML Syringe FLUSH PRN (14:42)
[2021-11-27] MEDS ORDERED: Sodium Chloride 0.9% 1,000 ML IV SCH (14:45)
[2021-11-27] MEDS ORDERED: Sodium Chloride 3% 500 ML IV SCH (15:15)
[2021-11-27] MEDS ORDERED: Acetaminophen 325 MG Tab PO PRN (18:03)
[2021-11-27] MEDS: HYDRALAZINE 50 MG PO SCH (21:15)
[2021-11-27] MEDS: Carvedilol 3.125 MG Tab **OWN MED PO SCH (21:15)
[2021-11-27] MEDS: ISOSORBIDE DINITRATE 10 MG PO SCH (21:16)
[2021-11-27] MEDS: Cholecalciferol (Vitamin D3) 25 MCG Tab PO SCH (21:16)
[2021-11-27] MEDS: VALSARTAN PO SCH (21:16)
[2021-11-27] MEDS: SACUBITRIL PO SCH (21:16)
[2021-11-27] MEDS: SODIUM BICARBONATE 650 MG PO SCH (21:16)
[2021-11-28] MEDS ORDERED: Albumin 25% 12.5 GM in Premix Bag 1 BAG IV SCH (08:45)
[2021-11-28] MEDS: Albumin 25% 12.5 GM in Premix Bag 1 BAG IV SCH ×3 (09:18→13:56)
[2021-11-28] MEDS: Aspirin 81 MG Tab.EC PO SCH (09:18)
[2021-11-28] MEDS: Cholecalciferol (Vitamin D3) 25 MCG Tab PO SCH ×2 (09:18→20:11)
[2021-11-28] MEDS: Enoxaparin 30 MG/0.3 ML Syringe SUBCUT SCH (09:24)
[2021-11-28] MEDS: HYDRALAZINE 50 MG PO SCH ×2 (09:31→20:13)
[2021-11-28] MEDS: SODIUM BICARBONATE 650 MG PO SCH ×2 (09:31→20:17)
[2021-11-28] MEDS: VALSARTAN PO SCH ×2 (09:31→20:16)
[2021-11-28] MEDS: Allopurinol 100 MG Tab PO SCH (09:31)
[2021-11-28] MEDS: SACUBITRIL PO SCH ×2 (09:31→20:16)
[2021-11-28] MEDS: Rosuvastatin 10 MG Tab PO SCH (09:31)
[2021-11-28] MEDS: Carvedilol 3.125 MG Tab **OWN MED PO SCH ×2 (09:32→20:12)
[2021-11-28] MEDS: ISOSORBIDE DINITRATE 10 MG PO SCH ×2 (09:32→20:14)
[2021-11-28] MEDS ORDERED: Albumin 25% 12.5 GM in Premix Bag 1 BAG IV ONE (10:30)
[2021-11-28] MEDS: Magnesium Oxide 400 MG Tab PO SCH ×2 (11:34→20:11)
[2021-11-28] MEDS ORDERED: Sodium Chloride 0.9% 1,000 ML IV SCH (17:30)
[2021-11-28] MEDS ORDERED: Furosemide 20 MG/2 ML VIAL IVPUSH ONE (18:30)
[2021-11-29] MEDS ORDERED: Sodium Chloride 0.9% 1,000 ML IV SCH (07:45)
[2021-11-29] MEDS: Enoxaparin 30 MG/0.3 ML Syringe SUBCUT SCH (09:43)
[2021-11-29] MEDS: Magnesium Oxide 400 MG Tab PO SCH ×2 (09:43→20:34)
[2021-11-29] MEDS: Cholecalciferol (Vitamin D3) 25 MCG Tab PO SCH ×2 (09:43→20:34)
[2021-11-29] MEDS: SODIUM BICARBONATE 650 MG PO SCH (09:44)
[2021-11-29] MEDS: Aspirin 81 MG Tab.EC PO SCH (09:44)
[2021-11-29] MEDS: ISOSORBIDE DINITRATE 10 MG PO SCH (09:45)
[2021-11-29] MEDS: Allopurinol 100 MG Tab PO SCH (09:46)
[2021-11-29] MEDS: Carvedilol 3.125 MG Tab **OWN MED PO SCH (09:47)
[2021-11-29] MEDS: HYDRALAZINE 50 MG PO SCH (09:48)
[2021-11-29] MEDS: SACUBITRIL PO SCH ×2 (09:50→20:35)
[2021-11-29] MEDS: VALSARTAN PO SCH ×2 (09:50→20:35)
[2021-11-29] MEDS: Rosuvastatin 10 MG Tab PO SCH (09:52)
[2021-11-29] MEDS ORDERED: Allopurinol 100 MG Tab PO SCH (12:20)
[2021-11-29] MEDS ORDERED: Rosuvastatin 10 MG Tab PO SCH (12:21)
[2021-11-29] MEDS ORDERED: Albumin 25% 12.5 GM in Premix Bag 1 BAG IV ONE (17:14)
[2021-11-29] MEDS: Isosorbide Dinitrate 10 MG Tab PO SCH (20:33)
[2021-11-29] MEDS: Carvedilol 3.125 MG Tab PO SCH (20:34)
[2021-11-29] MEDS: Sodium Bicarbonate 650 MG Tab PO SCH (20:34)
[2021-11-29] MEDS: hydrALAZINE 25 MG Tab PO SCH (20:35)
[2021-11-29] MEDS ORDERED: traZODone 50 MG Tab PO PRN (22:18)
[2021-11-30] MEDS: Cholecalciferol (Vitamin D3) 25 MCG Tab PO SCH (08:47)
[2021-11-30] MEDS: Magnesium Oxide 400 MG Tab PO SCH (08:48)
[2021-11-30] MEDS: Aspirin 81 MG Tab.EC PO SCH (08:48)
[2021-11-30] MEDS: Carvedilol 3.125 MG Tab PO SCH (08:50)
[2021-11-30] MEDS: Sodium Bicarbonate 650 MG Tab PO SCH (08:51)
[2021-11-30] MEDS: Isosorbide Dinitrate 10 MG Tab PO SCH (08:51)
[2021-11-30] MEDS: hydrALAZINE 25 MG Tab PO SCH (08:51)
[2021-11-30] MEDS: Enoxaparin 30 MG/0.3 ML Syringe SUBCUT SCH (08:52)
[2021-11-30] MEDS: VALSARTAN PO SCH (09:06)
[2021-11-30] MEDS: SACUBITRIL PO SCH (09:06)
[2021-11-30 13:12] VITALS: BP 157/86; PULSE 80
== END 2021-11-30 13:52 | disposition home or self-care (01) | DRG 641 ==
LOC: JD.ED 14:06 → JD.MS 16:03 → OBSVTOIN 11-29 08:02
PROVIDERS: ADMIT Emergency Medicine; ATTEND Family Medicine
DX: E87.1 Hypo-osmolality and hyponatremia (principal); N17.9 Acute kidney failure, unspecified; I13.0 Hypertensive heart and chronic kidney disease with heart failure and stage 1 through stage 4 chronic kidney disease, or unspecified chronic kidney disease; N18.30 Chronic kidney disease, stage 3 unspecified; I50.9 Heart failure, unspecified; I25.10 Atherosclerotic heart disease of native coronary artery without angina pectoris; N18.4 Chronic kidney disease, stage 4 (severe); M10.9 Gout, unspecified; P03.89 Newborn affected by other specified complications of labor and delivery; E61.1 Iron deficiency; Z87.891 Personal history of nicotine dependence; Z88.1 Allergy status to other antibiotic agents; Z88.2 Allergy status to sulfonamides; H54.7 Unspecified visual loss; J45.909 Unspecified asthma, uncomplicated; M19.90 Unspecified osteoarthritis, unspecified site; Z95.5 Presence of coronary angioplasty implant and graft; N81.4 Uterovaginal prolapse, unspecified; Z79.82 Long term (current) use of aspirin; Z95.1 Presence of aortocoronary bypass graft; I25.2 Old myocardial infarction; Z79.899 Other long term (current) drug therapy; Z88.8 Allergy status to other drugs, medicaments and biological substances; Z98.890 Other specified postprocedural states; R82.81 Pyuria
CPT/HCPCS: 36415; 70450; 70450-26; 71045; 71045-26; 76770; 76770-26; 80048; 80053; 81001; 83735; 84295; 85025; 93005; 96365; 96366; 96375; 99285-25; A9270-GY; G0378; J1650; J1940; J7030; J7131; P9047

== ENCOUNTER 2024-03-08 14:18 | Emergency (ER) | payer MEDICARE, OTHER ==
[2024-03-08 18:31] VITALS: BP 205/90; PULSE 73
== END 2024-03-08 18:31 | disposition home or self-care (01) ==
LOC: JD.ED 14:18
DX: M25.511 Pain in right shoulder (principal); I13.0 Hypertensive heart and chronic kidney disease with heart failure and stage 1 through stage 4 chronic kidney disease, or unspecified chronic kidney disease; I50.9 Heart failure, unspecified; N18.9 Chronic kidney disease, unspecified; Z91.048 Other nonmedicinal substance allergy status; Z88.8 Allergy status to other drugs, medicaments and biological substances; Z88.2 Allergy status to sulfonamides; Z79.82 Long term (current) use of aspirin; Z79.899 Other long term (current) drug therapy
CPT/HCPCS: 73030-26-RT; 73030-RT; 99283

== ENCOUNTER 2024-10-25 09:14 | Emergency (ER) | payer MEDICARE, OTHER ==
[2024-10-25] MEDS ORDERED: Sodium Chloride 0.9% 10 ML Syringe FLUSH PRN (10:05)
[2024-10-25 10:08] VITALS: BP 185/77; PULSE 66
[2024-10-25 10:28] LABS: APPEARANCE,URINE CLEAR (Clear); BILIRUBIN,URINE NEGATIVE (Negative); COLOR,URINE YELLOW (Yellow); GLUCOSE,URINE NEGATIVE (Negative); KETONES,URINE NEGATIVE (Negative); LEUKOCYTE ESTERASE,URINE 1+ (Negative); NITRITE,URINE NEGATIVE (Negative); OCCULT BLOOD,URINE NEGATIVE (Negative); PROTEIN,URINE 1+ (Negative); UROBILINOGEN,URINE 0.2 (0.2-1.0)
[2024-10-25 11:00] LABS: BASOPHILS PERCENT AUTO 0.4 % (0.0-1.0); EOSINOPHILS ABSOLUTE AUTO 0.1 K/mm3 (0.0-0.4); HEMATOCRIT 24.2 % (37.0-47.0); IMMATURE GRAN ABSOLUTE AUTO 0.02 K/mm3 (0.00-0.05); IMMATURE GRAN PERCENT AUTO 0.3 % (0.0-0.4); LYMPHOCYTES ABSOLUTE AUTO 1.1 K/mm3 (1.0-4.8); LYMPHOCYTES PERCENT AUTO 13.8 % (24.0-44.0); MEAN CORPUSCULAR HEMOGLOBIN 35.1 pg (28.0-32.0); MEAN CORPUSCULAR HGB CONC 33.1 g/dl (32.0-36.0); MEAN CORPUSCULAR VOLUME 106.1 fl (83.0-99.0); MEAN PLATELET VOLUME 9.2 fl (9.4-12.3); MONOCYTES ABSOLUTE AUTO 0.4 K/mm3 (0.0-0.8); MONOCYTES PERCENT AUTO 5.7 % (0.0-8.0); NEUTROPHILS ABSOLUTE AUTO 6.1 K/mm3 (1.8-7.7); NEUTROPHILS PERCENT AUTO 78.8 % (41.0-71.0); PLATELET COUNT,PLT 213 K/mm3 (150-400); RED BLOOD CELL COUNT 2.28 M/mm3 (4.10-5.30); WHITE BLOOD CELL COUNT,WBC 7.73 K/mm3 (3.9-11.3)
[2024-10-25 11:03] LABS: BACTERIA,URINE NOT SEEN /hpf (FEW); EPITHELIAL CELLS,URINE 0-5 /hpf (0-5); MUCUS,URINE NOT SEEN /hpf (FEW); RBC,URINE 0-5 /hpf (0-5); WBC,URINE 0-5 /hpf (0-5)
[2024-10-25 11:29] LABS: A/G RATIO 1.1 (1-2); ANION GAP 12.5 (5-15); BILIRUBIN TOTAL 0.5 mg/dL (0.2-1.0); BUN/CREATININE RATIO 27.9 (14-18); C-REACTIVE PROTEIN 0.79 mg/dL (<0.30); CALCIUM 8.4 mg/dL (8.5-10.1); CREATININE 1.9 mg/dL (0.55-1.02); EST CRCL DRUG DOSING (CG) 16.69 mL/min; POTASSIUM,K 4.5 mEq/L (3.5-5.1); PROTEIN TOTAL,TP 5.7 g/dl (6.4-8.2)
[2024-10-25 12:53] LABS: IRON,FE 33 ug/dL (50-170); PERCENT FE SATURATION 18 % (20-55); TRANSFERRIN 148 mg/dL (202-364)
[2024-10-25 12:56] LABS: TOTAL IRON BINDING CAPACITY 185 ug/dL (100-400)
[2024-10-25 13:45] LABS: FOLIC ACID 97.8 ng/mL (8.6-58.9)
== END 2024-10-25 13:50 | disposition home or self-care (01) ==
LOC: JD.ED 09:14
DX: D64.89 Other specified anemias (principal); I13.0 Hypertensive heart and chronic kidney disease with heart failure and stage 1 through stage 4 chronic kidney disease, or unspecified chronic kidney disease; I50.9 Heart failure, unspecified; N18.9 Chronic kidney disease, unspecified; J45.909 Unspecified asthma, uncomplicated; M19.90 Unspecified osteoarthritis, unspecified site; Z88.2 Allergy status to sulfonamides; Z88.8 Allergy status to other drugs, medicaments and biological substances; Z79.82 Long term (current) use of aspirin; Z79.899 Other long term (current) drug therapy
CPT/HCPCS: 36415; 73030-26-RT; 73030-RT; 80053; 81001; 82607; 82746; 83540; 84466; 85025; 86140; 87086; 99285

== ENCOUNTER 2024-11-23 23:29 | Emergency (ER) | payer MEDICARE, OTHER ==
[2024-11-23] MEDS ORDERED: Sodium Chloride 0.9% 10 ML Syringe FLUSH PRN (23:43)
[2024-11-24 00:03] LABS: BASOPHILS ABSOLUTE AUTO 0.1 K/mm3 (0.0-0.2); BASOPHILS PERCENT AUTO 0.5 % (0.0-1.0); EOSINOPHILS ABSOLUTE AUTO 0.2 K/mm3 (0.0-0.4); EOSINOPHILS PERCENT AUTO 1.8 % (0.0-6.0); HEMATOCRIT 30.7 % (37.0-47.0); IMMATURE GRAN ABSOLUTE AUTO 0.04 K/mm3 (0.00-0.05); IMMATURE GRAN PERCENT AUTO 0.4 % (0.0-0.4); LYMPHOCYTES ABSOLUTE AUTO 2.7 K/mm3 (1.0-4.8); LYMPHOCYTES PERCENT AUTO 28.4 % (24.0-44.0); MEAN CORPUSCULAR HEMOGLOBIN 34.4 pg (28.0-32.0); MEAN CORPUSCULAR HGB CONC 32.6 g/dl (32.0-36.0); MEAN CORPUSCULAR VOLUME 105.5 fl (83.0-99.0); MEAN PLATELET VOLUME 9.4 fl (9.4-12.3); MONOCYTES ABSOLUTE AUTO 0.5 K/mm3 (0.0-0.8); MONOCYTES PERCENT AUTO 4.7 % (0.0-8.0); NEUTROPHILS ABSOLUTE AUTO 6.1 K/mm3 (1.8-7.7); NEUTROPHILS PERCENT AUTO 64.2 % (41.0-71.0); PLATELET COUNT,PLT 266 K/mm3 (150-400); RED BLOOD CELL COUNT 2.91 M/mm3 (4.10-5.30); WHITE BLOOD CELL COUNT,WBC 9.53 K/mm3 (3.9-11.3)
[2024-11-24] MEDS: Tenecteplase 50 MG Kit IV ONE (00:06)
[2024-11-24 00:12] LABS: INR 1.03; PROTHROMBIN TIME 10.9 SECONDS (9.7-12.0)
[2024-11-24 00:13] LABS: PTT,PARTIAL THROMBOPLSTIN TIME 28.6 SECONDS (21.7-31.4)
[2024-11-24 00:25] LABS: A/G RATIO 1.2 (1-2); ALBUMIN 3.7 g/dl (3.4-5.0); ANION GAP 16.7 (5-15); BILIRUBIN TOTAL 0.5 mg/dL (0.2-1.0); BUN/CREATININE RATIO 20.6 (14-18); CALCIUM 8.9 mg/dL (8.5-10.1); CREATININE 1.7 mg/dL (0.55-1.02); EST CRCL DRUG DOSING (CG) 18.27 mL/min; MAGNESIUM 1.6 mg/dL (1.8-2.4); POTASSIUM,K 4.7 mEq/L (3.5-5.1); PROTEIN TOTAL,TP 6.7 g/dl (6.4-8.2)
[2024-11-24] MEDS: Heparin Sodium/D5W 250 ML IV SCH (00:29)
[2024-11-24] MEDS: Heparin Sodium 5,000 Units/ML Vial IVPUSH ONE (00:33)
[2024-11-24] MEDS: Nitroglycerin/D5W 25 MG/250 ML BOTTLE IV SCH (00:42)
[2024-11-24] MEDS: Nitroglycerin 0.4 MG Tab.SL SL ONE (00:58)
[2024-11-24 01:03] VITALS: BP 179/76; PULSE 89
== END 2024-11-24 01:01 ==
LOC: JD.ED 23:29
DX: I21.3 ST elevation (STEMI) myocardial infarction of unspecified site (principal); I13.0 Hypertensive heart and chronic kidney disease with heart failure and stage 1 through stage 4 chronic kidney disease, or unspecified chronic kidney disease; I50.9 Heart failure, unspecified; N18.9 Chronic kidney disease, unspecified; Z88.8 Allergy status to other drugs, medicaments and biological substances; Z88.1 Allergy status to other antibiotic agents; Z88.2 Allergy status to sulfonamides; Z79.82 Long term (current) use of aspirin; Z79.899 Other long term (current) drug therapy
CPT/HCPCS: 36415; 71045; 80053; 83735; 83880; 84484; 85025; 85610; 85730; 93005; 96365; 96368; 96375; 99285; J1644; J2305; J3101; 93010; 99291; A9270-GY

== ENCOUNTER 2024-12-22 09:42 | Emergency (ER) | payer MEDICARE, OTHER ==
[2024-12-22 10:38] VITALS: BP 159/71; PULSE 66
[2024-12-22 11:38] LABS: BASOPHILS PERCENT AUTO 0.3 % (0.0-1.0); EOSINOPHILS ABSOLUTE AUTO 0.1 K/mm3 (0.0-0.4); EOSINOPHILS PERCENT AUTO 1.8 % (0.0-6.0); HEMATOCRIT 32.5 % (37.0-47.0); HEMOGLOBIN 10.5 gm/dl (12.0-16.0); IMMATURE GRAN ABSOLUTE AUTO 0.01 K/mm3 (0.00-0.05); IMMATURE GRAN PERCENT AUTO 0.2 % (0.0-0.4); LYMPHOCYTES ABSOLUTE AUTO 1.4 K/mm3 (1.0-4.8); LYMPHOCYTES PERCENT AUTO 21.5 % (24.0-44.0); MEAN CORPUSCULAR HGB CONC 32.3 g/dl (32.0-36.0); MEAN CORPUSCULAR VOLUME 102.2 fl (83.0-99.0); MEAN PLATELET VOLUME 9.5 fl (9.4-12.3); MONOCYTES ABSOLUTE AUTO 0.4 K/mm3 (0.0-0.8); MONOCYTES PERCENT AUTO 5.7 % (0.0-8.0); NEUTROPHILS ABSOLUTE AUTO 4.7 K/mm3 (1.8-7.7); NEUTROPHILS PERCENT AUTO 70.5 % (41.0-71.0); PLATELET COUNT,PLT 252 K/mm3 (150-400); RED BLOOD CELL COUNT 3.18 M/mm3 (4.10-5.30); WHITE BLOOD CELL COUNT,WBC 6.61 K/mm3 (3.9-11.3)
[2024-12-22 12:25] LABS: A/G RATIO 1.2 (1-2); ALANINE AMINOTRANSFERASE,ALT 13 U/L (14-59); ALBUMIN 3.3 g/dl (3.4-5.0); ALKALINE PHOSPHATASE 71 U/L (46-116); ANION GAP 13.8 (5-15); ASPARTATE AMNIOTRANSFERASE,AST 15 U/L (15-37); BILIRUBIN TOTAL 0.5 mg/dL (0.2-1.0); BLOOD UREA NITROGEN,BUN 46 mg/dL (7-18); BUN/CREATININE RATIO 30.7 (14-18); CALCIUM 9.2 mg/dL (8.5-10.1); CARBON DIOXIDE,CO2 28 mEq/L (21-32); CHLORIDE,CL 100 mEq/L (98-107); CREATININE 1.5 mg/dL (0.55-1.02); ESTIMATED GFR 35 mL/min (>60); GLUCOSE RANDOM 103 mg/dL (70-99); POTASSIUM,K 4.8 mEq/L (3.5-5.1); PROTEIN TOTAL,TP 6.1 g/dl (6.4-8.2); SODIUM,NA 137 mEq/L (136-145); TROPONIN I HIGH SENSITIVITY 34 pg/mL (<=51)
== END 2024-12-22 12:53 | disposition home or self-care (01) ==
LOC: MERGE 09:42 → JD.ED 09:42
DX: R55 Syncope and collapse (principal); I11.0 Hypertensive heart disease with heart failure; I50.9 Heart failure, unspecified; I25.2 Old myocardial infarction; M19.90 Unspecified osteoarthritis, unspecified site; Z88.1 Allergy status to other antibiotic agents; Z88.2 Allergy status to sulfonamides; Z88.8 Allergy status to other drugs, medicaments and biological substances; Z79.82 Long term (current) use of aspirin; Z79.899 Other long term (current) drug therapy
CPT/HCPCS: 36415; 71045; 71045-26; 80053; 83735; 84484; 85025; 93005; 93010; 99283; 99285

== ENCOUNTER 2025-07-18 08:58 | Emergency (ER) | payer MEDICARE, OTHER ==
[2025-07-18] MEDS: Ondansetron 4 MG Tab.DIS PO ONE (11:10)
[2025-07-18] MEDS: Acetaminophen/HYDROcodone 325-5 MG Tab PO STA (12:42)
[2025-07-18 12:44] VITALS: BP 179/73; PULSE 72
== END 2025-07-18 12:50 | disposition home or self-care (01) ==
LOC: JD.ED 08:58
DX: M25.551 Pain in right hip (principal); R07.81 Pleurodynia; I13.0 Hypertensive heart and chronic kidney disease with heart failure and stage 1 through stage 4 chronic kidney disease, or unspecified chronic kidney disease; I50.9 Heart failure, unspecified; N18.9 Chronic kidney disease, unspecified; I25.2 Old myocardial infarction; Z88.8 Allergy status to other drugs, medicaments and biological substances; Z88.2 Allergy status to sulfonamides; Z88.1 Allergy status to other antibiotic agents; Z79.82 Long term (current) use of aspirin; Z79.899 Other long term (current) drug therapy; Z95.5 Presence of coronary angioplasty implant and graft; Z95.1 Presence of aortocoronary bypass graft
CPT/HCPCS: 71046; 71046-26; 73502-26-RT; 73502-RT; 99283; A9270-GY

== ENCOUNTER 2025-07-20 07:58 | Inpatient (IN) | payer MEDICARE, OTHER ==
[2025-07-20] MEDS: Ondansetron 4 MG/2 ML SDV IVPUSH ONE (08:56)
[2025-07-20 09:03] LABS: BASOPHILS ABSOLUTE AUTO 0.0 K/mm3 (0.0-0.2); BASOPHILS PERCENT AUTO 0.4 % (0.0-1.0); EOSINOPHILS ABSOLUTE AUTO 0.2 K/mm3 (0.0-0.4); EOSINOPHILS PERCENT AUTO 2.7 % (0.0-6.0); IMMATURE GRAN ABSOLUTE AUTO 0.03 K/mm3 (0.00-0.05); IMMATURE GRAN PERCENT AUTO 0.4 % (0.0-0.4); LYMPHOCYTES ABSOLUTE AUTO 0.9 K/mm3 (1.0-4.8); LYMPHOCYTES PERCENT AUTO 11.1 % (24.0-44.0); MEAN PLATELET VOLUME 9.7 fl (9.4-12.3); MONOCYTES ABSOLUTE AUTO 0.5 K/mm3 (0.0-0.8); MONOCYTES PERCENT AUTO 6.5 % (0.0-8.0); NEUTROPHILS ABSOLUTE AUTO 6.5 K/mm3 (1.8-7.7); NEUTROPHILS PERCENT AUTO 78.9 % (41.0-71.0); NRBC ABSOLUTE 0.00 (0.00-0.02); NRBC PERCENT 0.0 % (0.0-0.2); PLATELET COUNT,PLT 192 K/mm3 (150-400); RED BLOOD CELL COUNT 3.25 M/mm3 (4.10-5.30); WHITE BLOOD CELL COUNT,WBC 8.21 K/mm3 (3.9-11.3)
[2025-07-20] MEDS: Acetaminophen/oxyCODONE 325-5 MG Tab PO ONE (09:16)
[2025-07-20 09:22] LABS: INR 1.01
[2025-07-20 09:29] LABS: A/G RATIO 1.0 (1-2); ALANINE AMINOTRANSFERASE,ALT 19.0 U/L (14-59); ASPARTATE AMNIOTRANSFERASE,AST 18.0 U/L (15-37); BILIRUBIN TOTAL 0.4 mg/dL (0.2-1.0); BLOOD UREA NITROGEN,BUN 49.0 mg/dL (7-18); CARBON DIOXIDE,CO2 27.0 mEq/L (21-32); CHLORIDE,CL 89.0 mEq/L (98-107); CREATINE KINASE,CK 89.0 U/L (26-192); CREATININE 2.6 mg/dL (0.55-1.02); EST CRCL DRUG DOSING (CG) 11.74 mL/min; ESTIMATED GFR 18.0 mL/min (>60); GLUCOSE RANDOM 123.0 mg/dL (70-99); POTASSIUM,K 4.8 mEq/L (3.5-5.1); PROTEIN TOTAL,TP 6.5 g/dl (6.4-8.2); SODIUM,NA 124.0 mEq/L (136-145); TROPONIN I HIGH SENSITIVITY 27.0 pg/mL (<=51)
[2025-07-20] MEDS: Ondansetron 4 MG/2 ML SDV IV PRN (15:23)
[2025-07-21 04:48] LABS: BASOPHILS ABSOLUTE AUTO 0.0 K/mm3 (0.0-0.2); BASOPHILS PERCENT AUTO 0.3 % (0.0-1.0); EOSINOPHILS ABSOLUTE AUTO 0.2 K/mm3 (0.0-0.4); EOSINOPHILS PERCENT AUTO 4.0 % (0.0-6.0); IMMATURE GRAN ABSOLUTE AUTO 0.03 K/mm3 (0.00-0.05); IMMATURE GRAN PERCENT AUTO 0.5 % (0.0-0.4); LYMPHOCYTES ABSOLUTE AUTO 1.3 K/mm3 (1.0-4.8); LYMPHOCYTES PERCENT AUTO 20.6 % (24.0-44.0); MEAN PLATELET VOLUME 9.7 fl (9.4-12.3); MONOCYTES ABSOLUTE AUTO 0.4 K/mm3 (0.0-0.8); MONOCYTES PERCENT AUTO 7.1 % (0.0-8.0); NEUTROPHILS ABSOLUTE AUTO 4.1 K/mm3 (1.8-7.7); NEUTROPHILS PERCENT AUTO 67.5 % (41.0-71.0); NRBC ABSOLUTE 0.00 (0.00-0.02); NRBC PERCENT 0.0 % (0.0-0.2); PLATELET COUNT,PLT 190 K/mm3 (150-400); RED BLOOD CELL COUNT 2.78 M/mm3 (4.10-5.30); WHITE BLOOD CELL COUNT,WBC 6.07 K/mm3 (3.9-11.3)
[2025-07-21 05:19] LABS: A/G RATIO 1.0 (1-2); ALANINE AMINOTRANSFERASE,ALT 15.0 U/L (14-59); ASPARTATE AMNIOTRANSFERASE,AST 15.0 U/L (15-37); BILIRUBIN TOTAL 0.3 mg/dL (0.2-1.0); BLOOD UREA NITROGEN,BUN 47.0 mg/dL (7-18); CARBON DIOXIDE,CO2 24.0 mEq/L (21-32); CHLORIDE,CL 96.0 mEq/L (98-107); CREATININE 2.3 mg/dL (0.55-1.02); EST CRCL DRUG DOSING (CG) 13.98 mL/min; ESTIMATED GFR 21.0 mL/min (>60); GLUCOSE RANDOM 115.0 mg/dL (70-99); POTASSIUM,K 4.5 mEq/L (3.5-5.1); PROTEIN TOTAL,TP 5.7 g/dl (6.4-8.2); SODIUM,NA 128.0 mEq/L (136-145)
[2025-07-21] MEDS: Cholecalciferol (Vitamin D3) 25 MCG Tab PO SCH (08:14)
[2025-07-21] MEDS: Ferrous Sulfate 324 MG Tab.EC PO SCH (08:21)
[2025-07-21 12:50] LABS: BLOOD UREA NITROGEN,BUN 49.0 mg/dL (7-18); CARBON DIOXIDE,CO2 27.0 mEq/L (21-32); CHLORIDE,CL 96.0 mEq/L (98-107); CREATININE 2.5 mg/dL (0.55-1.02); EST CRCL DRUG DOSING (CG) 12.87 mL/min; ESTIMATED GFR 19.0 mL/min (>60); GLUCOSE RANDOM 139.0 mg/dL (70-99); POTASSIUM,K 4.9 mEq/L (3.5-5.1); SODIUM,NA 130.0 mEq/L (136-145)
[2025-07-22 07:41] LABS: BLOOD UREA NITROGEN,BUN 51.0 mg/dL (7-18); CARBON DIOXIDE,CO2 26.0 mEq/L (21-32); CHLORIDE,CL 101.0 mEq/L (98-107); CREATININE 2.0 mg/dL (0.55-1.02); EST CRCL DRUG DOSING (CG) 16.08 mL/min; ESTIMATED GFR 24.0 mL/min (>60); GLUCOSE RANDOM 92.0 mg/dL (70-99); POTASSIUM,K 5.2 mEq/L (3.5-5.1); SODIUM,NA 135.0 mEq/L (136-145)
[2025-07-23 07:35] LABS: BLOOD UREA NITROGEN,BUN 49.0 mg/dL (7-18); CARBON DIOXIDE,CO2 28.0 mEq/L (21-32); CHLORIDE,CL 100.0 mEq/L (98-107); CREATININE 1.9 mg/dL (0.55-1.02); EST CRCL DRUG DOSING (CG) 16.93 mL/min; ESTIMATED GFR 26.0 mL/min (>60); GLUCOSE RANDOM 95.0 mg/dL (70-99); POTASSIUM,K 4.9 mEq/L (3.5-5.1); SODIUM,NA 132.0 mEq/L (136-145)
[2025-07-23] MEDS ORDERED: CARVEDILOL 25 MG PO SCH (14:45)
[2025-07-24] MEDS: Ondansetron 4 MG Tab.DIS PO PRN (16:27)
[2025-07-24 17:50] LABS: BASOPHILS ABSOLUTE AUTO 0.0 K/mm3 (0.0-0.2); BASOPHILS PERCENT AUTO 0.4 % (0.0-1.0); EOSINOPHILS ABSOLUTE AUTO 0.4 K/mm3 (0.0-0.4); EOSINOPHILS PERCENT AUTO 4.9 % (0.0-6.0); IMMATURE GRAN ABSOLUTE AUTO 0.03 K/mm3 (0.00-0.05); IMMATURE GRAN PERCENT AUTO 0.4 % (0.0-0.4); LYMPHOCYTES ABSOLUTE AUTO 1.4 K/mm3 (1.0-4.8); LYMPHOCYTES PERCENT AUTO 18.9 % (24.0-44.0); MEAN PLATELET VOLUME 9.1 fl (9.4-12.3); MONOCYTES ABSOLUTE AUTO 0.5 K/mm3 (0.0-0.8); MONOCYTES PERCENT AUTO 6.3 % (0.0-8.0); NEUTROPHILS ABSOLUTE AUTO 5.0 K/mm3 (1.8-7.7); NEUTROPHILS PERCENT AUTO 69.1 % (41.0-71.0); NRBC ABSOLUTE 0.00 (0.00-0.02); NRBC PERCENT 0.0 % (0.0-0.2); PLATELET COUNT,PLT 246 K/mm3 (150-400); RED BLOOD CELL COUNT 3.05 M/mm3 (4.10-5.30); WHITE BLOOD CELL COUNT,WBC 7.16 K/mm3 (3.9-11.3)
[2025-07-24 18:09] LABS: A/G RATIO 0.9 (1-2); ALANINE AMINOTRANSFERASE,ALT 27.0 U/L (14-59); ASPARTATE AMNIOTRANSFERASE,AST 24.0 U/L (15-37); BILIRUBIN TOTAL 0.3 mg/dL (0.2-1.0); BLOOD UREA NITROGEN,BUN 54.0 mg/dL (7-18); CARBON DIOXIDE,CO2 29.0 mEq/L (21-32); CHLORIDE,CL 100.0 mEq/L (98-107); CREATININE 1.8 mg/dL (0.55-1.02); EST CRCL DRUG DOSING (CG) 17.87 mL/min; ESTIMATED GFR 28.0 mL/min (>60); GLUCOSE RANDOM 118.0 mg/dL (70-99); POTASSIUM,K 5.7 mEq/L (3.5-5.1); PROTEIN TOTAL,TP 6.5 g/dl (6.4-8.2); SODIUM,NA 136.0 mEq/L (136-145)
[2025-07-24] MEDS: Furosemide 40 MG/4 ML VIAL IVPUSH ONE (18:52)
[2025-07-25 11:06] LABS: BASOPHILS ABSOLUTE AUTO 0.0 K/mm3 (0.0-0.2); BASOPHILS PERCENT AUTO 0.3 % (0.0-1.0); EOSINOPHILS ABSOLUTE AUTO 0.2 K/mm3 (0.0-0.4); EOSINOPHILS PERCENT AUTO 4.0 % (0.0-6.0); IMMATURE GRAN ABSOLUTE AUTO 0.03 K/mm3 (0.00-0.05); IMMATURE GRAN PERCENT AUTO 0.5 % (0.0-0.4); LYMPHOCYTES ABSOLUTE AUTO 1.1 K/mm3 (1.0-4.8); LYMPHOCYTES PERCENT AUTO 18.6 % (24.0-44.0); MEAN PLATELET VOLUME 9.0 fl (9.4-12.3); MONOCYTES ABSOLUTE AUTO 0.5 K/mm3 (0.0-0.8); MONOCYTES PERCENT AUTO 8.6 % (0.0-8.0); NEUTROPHILS ABSOLUTE AUTO 4.0 K/mm3 (1.8-7.7); NEUTROPHILS PERCENT AUTO 68.0 % (41.0-71.0); NRBC ABSOLUTE 0.00 (0.00-0.02); NRBC PERCENT 0.0 % (0.0-0.2); PLATELET COUNT,PLT 249 K/mm3 (150-400); RED BLOOD CELL COUNT 2.97 M/mm3 (4.10-5.30); WHITE BLOOD CELL COUNT,WBC 5.82 K/mm3 (3.9-11.3)
[2025-07-25 11:31] LABS: A/G RATIO 0.9 (1-2); ALANINE AMINOTRANSFERASE,ALT 22.0 U/L (14-59); ASPARTATE AMNIOTRANSFERASE,AST 19.0 U/L (15-37); BILIRUBIN TOTAL 0.4 mg/dL (0.2-1.0); BLOOD UREA NITROGEN,BUN 65.0 mg/dL (7-18); CARBON DIOXIDE,CO2 32.0 mEq/L (21-32); CHLORIDE,CL 98.0 mEq/L (98-107); CREATININE 2.3 mg/dL (0.55-1.02); EST CRCL DRUG DOSING (CG) 13.98 mL/min; ESTIMATED GFR 21.0 mL/min (>60); GLUCOSE RANDOM 119.0 mg/dL (70-99); POTASSIUM,K 5.2 mEq/L (3.5-5.1); PROTEIN TOTAL,TP 6.1 g/dl (6.4-8.2); SODIUM,NA 136.0 mEq/L (136-145)
[2025-07-26 04:39] LABS: MEAN PLATELET VOLUME 9.4 fl (9.4-12.3); NRBC ABSOLUTE 0.00 (0.00-0.02); NRBC PERCENT 0.0 % (0.0-0.2); PLATELET COUNT,PLT 234 K/mm3 (150-400); RED BLOOD CELL COUNT 2.86 M/mm3 (4.10-5.30); WHITE BLOOD CELL COUNT,WBC 6.37 K/mm3 (3.9-11.3)
[2025-07-26 04:50] LABS: A/G RATIO 0.9 (1-2); ALANINE AMINOTRANSFERASE,ALT 21.0 U/L (14-59); ASPARTATE AMNIOTRANSFERASE,AST 16.0 U/L (15-37); BILIRUBIN TOTAL 0.4 mg/dL (0.2-1.0); BLOOD UREA NITROGEN,BUN 73.0 mg/dL (7-18); CARBON DIOXIDE,CO2 32.0 mEq/L (21-32); CHLORIDE,CL 97.0 mEq/L (98-107); CREATININE 2.2 mg/dL (0.55-1.02); EST CRCL DRUG DOSING (CG) 14.62 mL/min; ESTIMATED GFR 22.0 mL/min (>60); GLUCOSE RANDOM 93.0 mg/dL (70-99); POTASSIUM,K 5.1 mEq/L (3.5-5.1); PROTEIN TOTAL,TP 6.0 g/dl (6.4-8.2); SODIUM,NA 136.0 mEq/L (136-145)
[2025-07-28 09:26] VITALS: BP 166/87; PULSE 59
== END 2025-07-28 10:05 | DRG 683 ==
LOC: JD.ED 07:58 → JD.MS 12:52
PROVIDERS: ADMIT Family Medicine; ATTEND Family Medicine
DX: R07.81 Pleurodynia (principal); M25.551 Pain in right hip; N17.9 Acute kidney failure, unspecified; E87.1 Hypo-osmolality and hyponatremia; I13.0 Hypertensive heart and chronic kidney disease with heart failure and stage 1 through stage 4 chronic kidney disease, or unspecified chronic kidney disease; K92.1 Melena; I50.9 Heart failure, unspecified; K62.5 Hemorrhage of anus and rectum; I25.2 Old myocardial infarction; E61.1 Iron deficiency; F41.9 Anxiety disorder, unspecified; N18.4 Chronic kidney disease, stage 4 (severe); D64.9 Anemia, unspecified; H91.90 Unspecified hearing loss, unspecified ear; H54.7 Unspecified visual loss; J45.909 Unspecified asthma, uncomplicated; E86.0 Dehydration; M19.90 Unspecified osteoarthritis, unspecified site; H40.9 Unspecified glaucoma; E87.5 Hyperkalemia; R00.1 Bradycardia, unspecified; M10.9 Gout, unspecified; M79.18 Myalgia, other site; R53.1 Weakness; E88.09 Other disorders of plasma-protein metabolism, not elsewhere classified; N28.89 Other specified disorders of kidney and ureter; Z88.8 Allergy status to other drugs, medicaments and biological substances; Z88.2 Allergy status to sulfonamides; Z88.1 Allergy status to other antibiotic agents; Z95.5 Presence of coronary angioplasty implant and graft; Z79.899 Other long term (current) drug therapy; Z79.82 Long term (current) use of aspirin; Z98.49 Cataract extraction status, unspecified eye; Z98.890 Other specified postprocedural states
CPT/HCPCS: 36415; 74176; 80053; 82306; 82550; 83605; 83690; 83735; 83930; 84484; 85025; 85610; 93005; 96361; 96374; 99285; A9270; J2405; J7030; 71045; 71045-26; 80048; 82947; 83935; 84132; 84300; 85027; 93010; 97110-GP; 97116-GP; 97161-GP; 97166-GO; 97535-GO; J1650; J3490

== ENCOUNTER 2025-08-22 08:43 | Inpatient (IN) | payer MEDICARE, OTHER ==
[2025-08-22] MEDS ORDERED: Sodium Chloride 0.9% 10 ML Syringe FLUSH PRN (09:29)
[2025-08-22 10:00] LABS: BASOPHILS ABSOLUTE AUTO 0.0 K/mm3 (0.0-0.2); BASOPHILS PERCENT AUTO 0.4 % (0.0-1.0); EOSINOPHILS ABSOLUTE AUTO 0.2 K/mm3 (0.0-0.4); EOSINOPHILS PERCENT AUTO 2.2 % (0.0-6.0); IMMATURE GRAN ABSOLUTE AUTO 0.03 K/mm3 (0.00-0.05); IMMATURE GRAN PERCENT AUTO 0.3 % (0.0-0.4); LYMPHOCYTES ABSOLUTE AUTO 1.2 K/mm3 (1.0-4.8); LYMPHOCYTES PERCENT AUTO 12.4 % (24.0-44.0); MEAN PLATELET VOLUME 9.1 fl (9.4-12.3); MONOCYTES ABSOLUTE AUTO 0.6 K/mm3 (0.0-0.8); MONOCYTES PERCENT AUTO 5.9 % (0.0-8.0); NEUTROPHILS ABSOLUTE AUTO 7.5 K/mm3 (1.8-7.7); NEUTROPHILS PERCENT AUTO 78.8 % (41.0-71.0); NRBC ABSOLUTE 0.00 (0.00-0.02); NRBC PERCENT 0.0 % (0.0-0.2); PLATELET COUNT,PLT 240 K/mm3 (150-400); RED BLOOD CELL COUNT 3.25 M/mm3 (4.10-5.30); WHITE BLOOD CELL COUNT,WBC 9.48 K/mm3 (3.9-11.3)
[2025-08-22 10:17] LABS: GLUCOSE,URINE NEGATIVE (Negative); OCCULT BLOOD,URINE TRACE-INTACT (Negative)
[2025-08-22 10:18] LABS: APPEARANCE,URINE SLT CLOUDY (Clear)
[2025-08-22 10:23] LABS: LACTIC ACID 0.6 mmol/L (0.4-2.0)
[2025-08-22 10:24] LABS: SQUAMOUS EPITHELIAL CELLS,UR 0-5 /hpf (0-5)
[2025-08-22 10:35] LABS: A/G RATIO 1.0 (1-2); ALANINE AMINOTRANSFERASE,ALT 12.0 U/L (14-59); ASPARTATE AMNIOTRANSFERASE,AST 15.0 U/L (15-37); BILIRUBIN TOTAL 0.7 mg/dL (0.2-1.0); BLOOD UREA NITROGEN,BUN 31.0 mg/dL (7-18); CARBON DIOXIDE,CO2 24.0 mEq/L (21-32); CHLORIDE,CL 99.0 mEq/L (98-107); CREATININE 1.5 mg/dL (0.55-1.02); EST CRCL DRUG DOSING (CG) 21.44 mL/min; ESTIMATED GFR 34.0 mL/min (>60); GLUCOSE RANDOM 109.0 mg/dL (70-99); POTASSIUM,K 4.8 mEq/L (3.5-5.1); PROTEIN TOTAL,TP 7.1 g/dl (6.4-8.2); SODIUM,NA 135.0 mEq/L (136-145); TROPONIN I HIGH SENSITIVITY 24.0 pg/mL (<=51)
[2025-08-22 10:36] LABS: CORONAVIRUS COVID-19 NAA NEGATIVE (NEGATIVE); INFLUENZA A NAA NEGATIVE (NEGATIVE); RESPIRATORY SYNCYTIAL VIR NAA NEGATIVE (NEGATIVE)
[2025-08-22] MEDS: Furosemide 40 MG/4 ML VIAL IVPUSH ONE (12:18)
[2025-08-22] MEDS ORDERED: Non-Formulary Medication 1 Each (Ferrous Sulfate 325 MG Tablet) PO SCH (13:00)
[2025-08-22] MEDS: cefTRIAXone 1 GM in Water For Injection, Sterile 10 ML IVPUSH SCH (21:16)
[2025-08-23 05:52] LABS: BASOPHILS ABSOLUTE AUTO 0.0 K/mm3 (0.0-0.2); BASOPHILS PERCENT AUTO 0.7 % (0.0-1.0); EOSINOPHILS ABSOLUTE AUTO 0.2 K/mm3 (0.0-0.4); EOSINOPHILS PERCENT AUTO 4.4 % (0.0-6.0); IMMATURE GRAN ABSOLUTE AUTO 0.01 K/mm3 (0.00-0.05); IMMATURE GRAN PERCENT AUTO 0.2 % (0.0-0.4); LYMPHOCYTES ABSOLUTE AUTO 1.4 K/mm3 (1.0-4.8); LYMPHOCYTES PERCENT AUTO 24.7 % (24.0-44.0); MEAN PLATELET VOLUME 9.2 fl (9.4-12.3); MONOCYTES ABSOLUTE AUTO 0.5 K/mm3 (0.0-0.8); MONOCYTES PERCENT AUTO 8.7 % (0.0-8.0); NEUTROPHILS ABSOLUTE AUTO 3.4 K/mm3 (1.8-7.7); NEUTROPHILS PERCENT AUTO 61.3 % (41.0-71.0); NRBC ABSOLUTE 0.00 (0.00-0.02); NRBC PERCENT 0.0 % (0.0-0.2); PLATELET COUNT,PLT 228 K/mm3 (150-400); RED BLOOD CELL COUNT 3.11 M/mm3 (4.10-5.30); WHITE BLOOD CELL COUNT,WBC 5.51 K/mm3 (3.9-11.3)
[2025-08-23 06:22] LABS: A/G RATIO 0.9 (1-2); ALANINE AMINOTRANSFERASE,ALT 8.0 U/L (14-59); ASPARTATE AMNIOTRANSFERASE,AST 16.0 U/L (15-37); BILIRUBIN TOTAL 0.5 mg/dL (0.2-1.0); BLOOD UREA NITROGEN,BUN 33.0 mg/dL (7-18); CARBON DIOXIDE,CO2 27.0 mEq/L (21-32); CHLORIDE,CL 99.0 mEq/L (98-107); CREATININE 1.8 mg/dL (0.55-1.02); EST CRCL DRUG DOSING (CG) 17.01 mL/min; ESTIMATED GFR 28.0 mL/min (>60); GLUCOSE RANDOM 94.0 mg/dL (70-99); POTASSIUM,K 4.4 mEq/L (3.5-5.1); PROTEIN TOTAL,TP 6.4 g/dl (6.4-8.2); SODIUM,NA 135.0 mEq/L (136-145)
[2025-08-23] MEDS: Ferrous Sulfate 324 MG Tab.EC PO SCH (08:24)
[2025-08-23] MEDS: Furosemide 40 MG/4 ML VIAL IVPUSH ONE (09:32)
[2025-08-23] MEDS: Bismuth Subsalicylate 262 MG/15 ML Susp 236 ML Bottle PO ONE (18:43)
[2025-08-24 04:43] LABS: BASOPHILS ABSOLUTE AUTO 0.0 K/mm3 (0.0-0.2); BASOPHILS PERCENT AUTO 0.5 % (0.0-1.0); EOSINOPHILS ABSOLUTE AUTO 0.2 K/mm3 (0.0-0.4); EOSINOPHILS PERCENT AUTO 4.0 % (0.0-6.0); IMMATURE GRAN ABSOLUTE AUTO 0.02 K/mm3 (0.00-0.05); IMMATURE GRAN PERCENT AUTO 0.3 % (0.0-0.4); LYMPHOCYTES ABSOLUTE AUTO 1.9 K/mm3 (1.0-4.8); LYMPHOCYTES PERCENT AUTO 32.1 % (24.0-44.0); MEAN PLATELET VOLUME 9.1 fl (9.4-12.3); MONOCYTES ABSOLUTE AUTO 0.5 K/mm3 (0.0-0.8); MONOCYTES PERCENT AUTO 8.3 % (0.0-8.0); NEUTROPHILS ABSOLUTE AUTO 3.2 K/mm3 (1.8-7.7); NEUTROPHILS PERCENT AUTO 54.8 % (41.0-71.0); NRBC ABSOLUTE 0.00 (0.00-0.02); NRBC PERCENT 0.0 % (0.0-0.2); PLATELET COUNT,PLT 253 K/mm3 (150-400); RED BLOOD CELL COUNT 3.10 M/mm3 (4.10-5.30); WHITE BLOOD CELL COUNT,WBC 5.77 K/mm3 (3.9-11.3)
[2025-08-24 05:17] LABS: A/G RATIO 0.9 (1-2); ALANINE AMINOTRANSFERASE,ALT 8.0 U/L (14-59); ASPARTATE AMNIOTRANSFERASE,AST 13.0 U/L (15-37); BILIRUBIN TOTAL 0.4 mg/dL (0.2-1.0); BLOOD UREA NITROGEN,BUN 47.0 mg/dL (7-18); CARBON DIOXIDE,CO2 26.0 mEq/L (21-32); CHLORIDE,CL 98.0 mEq/L (98-107); CREATININE 2.0 mg/dL (0.55-1.02); EST CRCL DRUG DOSING (CG) 15.31 mL/min; ESTIMATED GFR 24.0 mL/min (>60); GLUCOSE RANDOM 95.0 mg/dL (70-99); POTASSIUM,K 4.3 mEq/L (3.5-5.1); PROTEIN TOTAL,TP 6.3 g/dl (6.4-8.2); SODIUM,NA 136.0 mEq/L (136-145)
[2025-08-24 10:17] VITALS: BP 110/58; PULSE 68
== END 2025-08-24 10:15 | disposition home health service (06) | DRG 291 ==
LOC: JD.ED 08:43 → JD.MS 12:54
PROVIDERS: ADMIT Family Medicine; ATTEND Family Medicine
DX: I13.0 Hypertensive heart and chronic kidney disease with heart failure and stage 1 through stage 4 chronic kidney disease, or unspecified chronic kidney disease (principal); I50.23 Acute on chronic systolic (congestive) heart failure; I50.9 Heart failure, unspecified; D63.1 Anemia in chronic kidney disease; N18.9 Chronic kidney disease, unspecified; J96.01 Acute respiratory failure with hypoxia; N18.4 Chronic kidney disease, stage 4 (severe); N17.9 Acute kidney failure, unspecified; I42.9 Cardiomyopathy, unspecified; Z88.0 Allergy status to penicillin; H40.9 Unspecified glaucoma; J45.20 Mild intermittent asthma, uncomplicated; M1A.9XX0 Chronic gout, unspecified, without tophus (tophi); D50.9 Iron deficiency anemia, unspecified; I25.10 Atherosclerotic heart disease of native coronary artery without angina pectoris; M19.90 Unspecified osteoarthritis, unspecified site; H54.7 Unspecified visual loss; F41.9 Anxiety disorder, unspecified; I25.2 Old myocardial infarction; Z95.5 Presence of coronary angioplasty implant and graft; Z79.82 Long term (current) use of aspirin; Z98.890 Other specified postprocedural states; Z79.891 Long term (current) use of opiate analgesic; Z79.899 Other long term (current) drug therapy; Z87.898 Personal history of other specified conditions; Z79.1 Long term (current) use of non-steroidal anti-inflammatories (NSAID); Z98.49 Cataract extraction status, unspecified eye; Z88.1 Allergy status to other antibiotic agents; Z88.8 Allergy status to other drugs, medicaments and biological substances; Z90.89 Acquired absence of other organs; Z88.2 Allergy status to sulfonamides
CPT/HCPCS: 36415; 71045; 71045-26; 80053; 81001; 83605; 83735; 83880; 84145; 84484; 85025; 87040; 87637; 93005; 93010; 94760; 94761; 96365; 96375; 97116-GP; 97162-GP; 97165-GO; 97530-GO; 99285; 99285-25; A9270-GY; J0696; J1271; J1650; J1938; J2543